=== PATIENT | female | born 1965 | race Caucasian/White ===

== ENCOUNTER → 2016-08-31 | Outpatient (CLI) | payer OTHER ==
[2016-08-31 10:34] LABS: CH 31.2; CHCM 34.2; HCT 46.2 % (34.0-46.0); HDW 3.01; HGB 15.2 gm/dL (11.4-16.0); MCHC 32.9 g/dL (31.0-37.0); MCV 91.4 fL (80.0-100.0); Mean Platelet Volume 7.5; RBC 5.06 m/uL (3.80-5.40); WBC 4.4 k/uL (3.8-10.6)
[2016-08-31 11:53] LABS: ALT 29 U/L (9-52); AST 22 U/L (14-36); Alkaline Phosphatase 77 U/L (38-126); Anion Gap 12 mmol/L; Blood Urea Nitrogen 9 mg/dL (7-17); Calcium 9.3 mg/dL (8.4-10.2); Carbon Dioxide 26 mmol/L (22-30); Chloride 98 mmol/L (98-107); Glucose 114 mg/dL (74-99); Iron 94 ug/dL (37-170); Non-African American GFR(MDRD) >60 (>60 ml/min/1.73 sqM); Potassium 3.9 mmol/L (3.5-5.1); Sodium 136 mmol/L (137-145); Total Bilirubin 0.4 mg/dL (0.2-1.3); Total Protein 7.2 g/dL (6.3-8.2)
[2016-08-31 12:02] LABS: % Iron Saturation 26.8 % (20-50); Total Iron Binding Capacity 351 ug/dL (265-497)
[2016-08-31 12:40] LABS: Vitamin B12 595 pg/mL (239-931)
== END | disposition home or self-care (01) ==
LOC: LABWHC1 09:32
PROVIDERS: ATTEND Psychiatry & Neurology Pain Medicine
DX: R56.9 Unspecified convulsions (principal); R53.83 Other fatigue
CPT/HCPCS: 36415; 80053; 82306; 82607; 82728; 83540; 83550; 84207; 84439; 84443; 84466; 84481; 85027

== ENCOUNTER 2017-12-17 20:49 | Observation (INO) | payer OTHER ==
--- NOTE | 2017-12-17 22:02 | ED ---
General Adult HPI - General Chief complaint: Seizure Stated complaint: Seizure Time Seen by Provider: 12/17/17 21:32 Source: patient, family, RN notes reviewed, Caregiver Mode of arrival: wheelchair Limitations: physical limitation - History of Present Illness Initial comments: Chief complaint and history of present illness this is a 52-year-old female brought emergency room by the printing manager of her nursing facility. The patient had a traumatic brain injury years ago. The patient apparently today may have had a slight vasovagal episode after having had a large hard bowel movement. The nurse taking care of her said she wasn't sure if she had a seizure or not. Due to the patient's traumatic brain injury and a past history of seizures is difficult to determine. The patient is able to state that she does not have headache remembers the situation does not think she had a seizure. The patient is on Depakote and has not been checked for a period of time. No other complaints at this time. - Related Data Home Medications Medication Instructions Recorded Confirmed ARIPiprazole [Abilify] 10 mg PO HS 02/03/14 06/25/16 ARIPiprazole [Abilify] 15 mg PO DAILY 02/03/14 06/25/16 Clobetasol Propionate [Temovate 1 applic TOPICAL BID 02/03/14 06/25/16 0.05% Oint] Clotrimazole/Betamethasone Dip 1 applic TOPICAL BID 02/03/14 06/25/16 [Lotrisone Cream] Divalproex Sodium [Depakote 125 mg PO DAILY 02/03/14 06/25/16 Sprinkle] Docusate [Colace] 100 mg PO DAILY 02/03/14 06/25/16 FLUoxetine HCL [PROzac] 20 mg PO DAILY 02/03/14 06/25/16 Ibuprofen [Motrin] 600 mg PO BID PRN 02/03/14 06/25/16 Lisinopril [Zestril] 2.5 mg PO DAILY 02/03/14 06/25/16 Nitrofurantoin Macrocrystal 100 mg PO DAILY 02/03/14 06/25/16 [Nitrofurantoin] Nystatin [Nystop] 1 applicate TOPICAL BID PRN 02/03/14 06/25/16 diphenhydrAMINE [Benadryl] 25 mg PO QID PRN 02/03/14 06/25/16 risperiDONE [RisperDAL] 3 mg PO HS 02/03/14 06/25/16 ALPRAZolam [Xanax] 2 mg PO TID PRN 06/25/16 06/25/16 Betamethasone Dipropionate 1 applic TOPICAL BID 06/25/16 06/25/16 [Diprolene 0.05% Lotion] Betamethasone Dipropionate 1 applic TOPICAL BID 06/25/16 06/25/16 [Diprolene 0.05% Ointment] Calcium Acetate-Aluminum Sulf 1 packet TOPICAL BID 06/25/16 06/25/16 [[place] Packet] Allen Tar Shampoo [T-Gel] 1 applic TOPICAL Q48H 06/25/16 06/25/16 Divalproex [Depakote] 500 mg PO TID 06/25/16 06/25/16 Eucerin Cream 1 applic TOPICAL HS 06/25/16 06/25/16 Ibuprofen [Motrin] 600 mg PO BID PRN 06/25/16 06/25/16 LORazepam [Ativan] 1 mg PO Q6H 06/25/16 06/25/16 Loperamide [Imodium] 4 mg PO BID PRN 06/25/16 06/25/16 Nystatin 100,000 Unit/gm Oint 1 applic TOPICAL BID PRN 06/25/16 06/25/16 [Mycostatin Oint] Nystatin/Triamcin 1 applic TOPICAL QID PRN 06/25/16 06/25/16 [Nystatin-Triamcinolone Cream] Ranitidine HCl [Zantac] 150 mg PO BID 06/25/16 06/25/16 T-Davon Shampoo 1 applic TOPICAL Q48H 06/25/16 06/25/16 Triamcinolone 0.1% Ointment 1 applic TOPICAL BID 06/25/16 06/25/16 [Kenalog 0.1% Ointment] Zeasorb-Af 2% Powder 1 applic TOPICAL BID 06/25/16 06/25/16 guaiFENesin [Mucinex] 1,200 mg PO BID PRN 06/25/16 06/25/16 guaiFENesin-DM 100-10MG/5ML 10 ml PO Q4H PRN 06/25/16 06/25/16 [Robitussin DM] traMADol HCL [Ultram] 50 mg PO Q4HR PRN 06/25/16 06/25/16 Previous Rx's Medication Instructions Recorded ALPRAZolam [Xanax] 0.5 mg PO Q4HR PRN #0 tab 06/28/16 Divalproex [Depakote] 500 mg PO TID tablet. 06/28/16 Allergies Allergy/AdvReac Type Severity Reaction Status Date / Time Sulfa (Sulfonamide Allergy Unknown Verified 12/17/17 21:12 Antibiotics) Review of Systems ROS Statement: Those systems with pertinent positive or pertinent negative responses have been documented in the HPI. Review of systems. The patient is able to answer questions though slowly because of the previous traumatic brain injury. Denying headache or visual acuity changes healed count fingers at 5 feet. Denying chest pain shortness breath denying abdominal pain. She does have more tremor than the guardian noticed before but she does have normally have tremor. Past medical problems significant for seizure disorder associated with traumatic brain injury. Unknown past surgical history at this time. ROS Other: All systems not noted in ROS Statement are negative. Past Medical History Past Medical History: Seizure Disorder Additional Past Medical History / Comment(s): brain injury, lt foot drop, chronic uti, depression, throat polyps, hiatal hernia; recurrent UTI; cognitive emotional volatility, History of Any Multi-Drug Resistant Organisms: None Reported Past Surgical History: Unable to Obtain Past Anesthesia/Blood Transfusion Reactions: No Reported Reaction Past Psychological History: Depression Smoking Status: Never smoker Past Alcohol Use History: None Reported Past Drug Use History: None Reported General Exam - General Exam Comments Initial Comments: General: The patient is awake and alert, and is acting in her normal way per nursing home assistant who is with her and was noted for 10 years. He states she does have more tremor normal at this time but she does normally have a tremor. Vital signs show temperature 99.0 pulse 91 respiratory rate 18 pulse ox 90% room air with a blood pressure 121/73. Eye: Pupils are equal, round and reactive to light, extra-ocular movements are intact ; there is normal conjunctiva bilaterally. No signs of icterus. Ears, nose, mouth and throat: There are moist mucous membranes . Neck: The neck is supple, no complaint of neck pain with neck flexion . Cardiovascular: There is a regular rate and rhythm. No murmur, rub or gallop is appreciated. Respiratory: Lungs are clear to auscultation, respirations are non-labored, breath sounds are equal. No wheezes, stridor, rales, or rhonchi. Gastrointestinal: Soft, non-distended, non-tender abdomen without masses or organomegaly noted. There is no rebound or guarding present. No CVA tenderness. Bowel sounds are unremarkable. Again age. Noted that the patient had this episode while having a large hard very abundant bowel movement described by the nursing home assistant. A possibility of a vasovagal episode is being considered. Back: No complaint of back pain. With the patient does admit that the stretcher is uncomfortable. Musculoskeletal: On both arms patient has psoriasis. Due to previous traumatic brain injury the patient's legs are semiflexed she is nonambulatory. Neurological: Previous traumatic brain injury over 10 years ago. 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 She does answer questions she does move extremities were requested. Skin: Psoriasis both forearms Psychiatric: Cooperative, traumatic brain injury history Limitations: physical limitation Course Vital Signs 12/17/17 21:06 Temperature 99.0 F Pulse Rate 91 Respiratory 18 Rate Blood Pressure 121/73 O2 Sat by Pulse 93 L Oximetry EKG Findings - EKG Comments: EKG Findings:: EKG was done and reviewed at 2201 showing normal sinus rhythm age undetermined anterior injury. Rate 92. Was 142 QRS 86 QT [address] Bernabe Medical Decision Making - Medical Decision Making Medical decision making; this is a 52-year-old female with a traumatic brain injury living at a nursing facility. Her administrative guardian brought her in because she may have had a mild seizure although this happened while she is on the toilet and just had had a very large hard bowel movement. Possibility of vasovagal episode also considered. The patient has not had a seizure in over 10 years. She is on Depakote. The patient's EKG did not show any acute changes. Her white count 8 the hemoglobin 14 hematocrit 42 with a potassium 5.2. BUN 15 creatinine 0.2 GFR greater than 90. Glucose 93. Valproic acid Depakote levels 130. Therapeutic is between 50 and 120, she is 130. reported to be toxic is over 200 toxic. Chest x-ray was done reviewed radiologist his final impression is ; no lobar consolidation or pulmonary edema. As read by Dr. Martinez The case discussed with Dr. Correia in the patient's attending patient be admitted for observation for the evening because of possible valproic acid toxicity. - Lab Data Result diagrams: 12/17/17 22:12 12/17/17 22:12 Lab Results 12/17/17 12/17/17 Range/Units 22:12 22:12 WBC 8.4 (3.8-10.6) k/uL RBC 4.72 (3.80-5.40) m/uL Hgb 14.5 (11.4-16.0) gm/dL Hct 42.5 (34.0-46.0) % MCV 89.9 (80.0-100.0) fL MCH 30.6 (25.0-35.0) pg MCHC 34.1 (31.0-37.0) g/dL RDW 14.2 (11.5-15.5) % Plt Count 152 (150-450) k/uL Neutrophils % 68 % Lymphocytes % 21 % Monocytes % 9 % Eosinophils % 1 % Basophils % 0 % Neutrophils # 5.7 (1.3-7.7) k/uL Lymphocytes # 1.7 (1.0-4.8) k/uL Monocytes # 0.8 (0-1.0) k/uL Eosinophils # 0.1 (0-0.7) k/uL Basophils # 0.0 (0-0.2) k/uL Sodium 135 L (137-145) mmol/L Potassium 5.2 H (3.5-5.1) mmol/L Chloride 97 L (98-107) mmol/L Carbon Dioxide 24 (22-30) mmol/L Anion Gap 14 mmol/L BUN 15 (7-17) mg/dL Creatinine 0.60 (0.52-1.04) mg/dL Est GFR (CKD-EPI)AfAm >90 (>60 ml/min/1.73 sqM) Est GFR (CKD-EPI)NonAf >90 (>60 ml/min/1.73 sqM) Glucose 93 (74-99) mg/dL Calcium 9.8 (8.4-10.2) mg/dL Total Bilirubin 0.4 (0.2-1.3) mg/dL AST 17 (14-36) U/L ALT 18 (9-52) U/L Alkaline Phosphatase 75 (38-126) U/L Total Protein 6.9 (6.3-8.2) g/dL Albumin 3.9 (3.5-5.0) g/dL Valproic Acid 130.3 H* ug/mL Disposition Clinical Impression: Valproic acid toxicity, Valproic acid-induced tremor, Personal history of traumatic brain injury Disposition: ADMITTED IP TO THIS HOSP Condition: Fair Is patient prescribed a controlled substance at d/c from ED?: No Referrals: None,Stated [REFERRING] - 1-2 days
[2017-12-17 22:25] LABS: Basophils % (A) 0 %; Eosinophils # (A) 0.1 k/uL (0-0.7); Eosinophils % (A) 1 %; HCT 42.5 % (34.0-46.0); HGB 14.5 gm/dL (11.4-16.0); Lymphocytes # (A) 1.7 k/uL (1.0-4.8); Lymphocytes % (A) 21 %; MCH 30.6 pg (25.0-35.0); MCHC 34.1 g/dL (31.0-37.0); MCV 89.9 fL (80.0-100.0); Monocytes # (A) 0.8 k/uL (0-1.0); Monocytes % (A) 9 %; Neutrophils # (A) 5.7 k/uL (1.3-7.7); Neutrophils % (A) 68 %; Platelet Count 152 k/uL (150-450); RBC 4.72 m/uL (3.80-5.40); RDW 14.2 % (11.5-15.5); WBC 8.4 k/uL (3.8-10.6)
[2017-12-17 22:36] LABS: ALT 18 U/L (9-52); AST 17 U/L (14-36); Albumin 3.9 g/dL (3.5-5.0); Alkaline Phosphatase 75 U/L (38-126); Anion Gap 14 mmol/L; Blood Urea Nitrogen 15 mg/dL (7-17); Calcium 9.8 mg/dL (8.4-10.2); Carbon Dioxide 24 mmol/L (22-30); Chloride 97 mmol/L (98-107); Glucose 93 mg/dL (74-99); Potassium 5.2 mmol/L (3.5-5.1); Sodium 135 mmol/L (137-145); Total Bilirubin 0.4 mg/dL (0.2-1.3); Total Protein 6.9 g/dL (6.3-8.2)
--- NOTE | 2017-12-17 22:50 | XR ---
EXAM: XR Chest, 1 View CLINICAL HISTORY: ITS.REASON XR Reason: Pain TECHNIQUE: Frontal view of the chest. COMPARISON: 06/25/16 FINDINGS: Lungs: Unremarkable. No consolidation. Pleural space: Unremarkable. No pneumothorax. Heart: Unremarkable. No cardiomegaly. Mediastinum: Unremarkable. Bones/joints: Unremarkable. IMPRESSION: No lobar consolidation or pulmonary edema.
[2017-12-17 22:56] LABS: Valproic Acid (Depakene) 130.3 ug/mL
[2017-12-17] MEDS ORDERED: ACETAMINOPHEN TAB 325 MG TAB PO PRN (23:24)
[2017-12-17] MEDS ORDERED: NALOXONE 0.4 MG/ML 1 ML VIAL IV PRN (23:24)
[2017-12-17] MEDS ORDERED: diphenhydrAMINE 25 MG CAP PO PRN (23:27)
[2017-12-17 23:33] LABS: Appearance,Urine Cloudy (Clear); Bacteria,Urine Rare /hpf; Bilirubin,Urine Negative (Negative); Blood,Urine Negative (Negative); Color,Urine Yellow; Glucose,Urine (UA) Negative (Negative); Hyaline Casts,Urine 6 /lpf (0-2); Ketones,Urine 1+ (Negative); Leukocyte Esterase,Urine Small (Negative); Mucus,Urine Many /hpf; Nitrite,Urine Negative (Negative); PH, Urine 6.5 (5.0-8.0); Protein,Urine 1+ (Negative); RBC,Urine 2 /hpf (0-5); Specific Gravity,Urine 1.027 (1.001-1.035); Squamous Epithelial Cell,Urine 6 /hpf (0-4); WBC,Urine 6 /hpf (0-5)
[2017-12-17] MEDS: SODIUM CHLORIDE 0.9% 1,000 ML IV SCH (23:43)
[2017-12-18 02:20] VITALS: BMI 30.9
[2017-12-18] MEDS ORDERED: CLOBETASOL PROP 0.05% OINT 15GM TOPICAL SCH (09:00)
[2017-12-18] MEDS ORDERED: CALCIUM ACETATE-ALUMINUM SULF 1 EACH PACKET TOPICAL SCH (09:00)
[2017-12-18] MEDS: FAMOTIDINE 20 MG TAB PO SCH ×2 (09:19→21:47)
[2017-12-18] MEDS: LISINOPRIL 2.5 MG TAB PO SCH (09:19)
[2017-12-18] MEDS: DOCUSATE 100 MG CAP PO SCH (09:19)
[2017-12-18] MEDS: FLUoxetine HCL 20 MG CAP PO SCH (09:19)
[2017-12-18] MEDS: SODIUM CHLORIDE 0.9% 1,000 ML IV SCH (11:36)
[2017-12-18] MEDS: BETAMETHASONE DIPROPIONATE 0.05% OINTMENT 45 GM TUBE TOPICAL SCH ×2 (12:01→21:47)
[2017-12-18] MEDS: CLOTRIMAZOLE/BETAMETH 1-0.05% CREAM 45 GM TUBE TOPICAL SCH ×2 (12:01→21:47)
[2017-12-18] MEDS ORDERED: LOPERAMIDE 2 MG CAP PO PRN (13:22)
[2017-12-18] MEDS ORDERED: ALPRAZolam 1 MG TAB PO PRN (13:22)
[2017-12-18] MEDS ORDERED: IBUPROFEN 600 MG TAB PO PRN (13:22)
[2017-12-18] MEDS ORDERED: MAGNESIUM HYDROXIDE 2,400 MG/10 ML CUP PO PRN (13:22)
[2017-12-18] MEDS ORDERED: traMADol 50 MG TAB PO PRN (13:22)
[2017-12-18] MEDS ORDERED: T SAL SHAMPOO TOPICAL SCH (13:30)
[2017-12-18] MEDS: DIVALPROEX 500 MG TABLET.DR PO SCH ×2 (15:36→21:47)
--- NOTE | 2017-12-18 18:43 | PN ---
PROGRESS NOTE CHIEF COMPLAINT: Possible seizure and Depakote toxicity. HISTORY OF PRESENT ILLNESS: This lady is awake and alert, doing fine. Depakote level is dropped into the normal range. We will restart her anticonvulsant medication. PHYSICAL EXAM: Is completely normal and she is awake and alert, but is inappropriate. IMPRESSION: 1. Depakote toxicity. 2. Seizure disorder. 3. Old closed head injury. PLAN: 1. Reinstitute Depakote. 2. Probably back to the detention tomorrow. MMODL / IJN: [id number] /
--- NOTE | 2017-12-18 18:43 | HP ---
HISTORY AND PHYSICAL CHIEF COMPLAINT: Possible seizure. HISTORY OF PRESENT ILLNESS: This may be another admission for this 52-year-old white female who is from the [facility]. She is resides there currently apparently due to old closed head injury. She is on Depakote and it was thought at the home that she might have had a brief seizure for which she was sent to the emergency room. There is more likely this is a vasovagal event since that occurred when they were helping her to the toilet for bowel movement. She cannot give any history. Past medical history, family history and personal and social histories are unobtainable. PHYSICAL EXAMINATION: Blood pressure is 142/85 with a pulse of 81, respirations of 20 and she is afebrile. In general, she appeared to be awake and alert, in no acute distress. She appears comfortable. Head, ears, eyes, nose, mouth, and throat were grossly normal. Neck veins not distended. Chest was clear. The cardiac exam is normal. Abdomen is soft, nontender and extremities are normal. Her laboratory studies on admission revealed the Depakote level was slightly elevated. IMPRESSION: 1. Possible seizure. 2. History of closed head injury with seizures. 3. Possible Depakote toxicity. PLAN: 1. Bed rest. 2. IV fluids. 3. Withhold Depakote. MMODL / IJN: [id number] /
[2017-12-18] MEDS ORDERED: risperiDONE 1 MG TAB PO SCH (21:00)
[2017-12-18] MEDS ORDERED: MINERAL OIL-WHITE PETROLATUM 120 GM JAR TOPICAL SCH (21:00)
[2017-12-18] MEDS ORDERED: ARIPiprazole 10 MG TAB PO SCH (21:00)
[2017-12-18 23:22] VITALS: RESP 16; TEMP 98
[2017-12-19] MEDS: SODIUM CHLORIDE 0.9% 1,000 ML IV SCH (06:28)
[2017-12-19 07:23] VITALS: BP 92/56; PULSE 64
[2017-12-19] MEDS: FLUoxetine HCL 20 MG CAP PO SCH (08:08)
[2017-12-19] MEDS: DOCUSATE 100 MG CAP PO SCH (08:08)
[2017-12-19] MEDS: DIVALPROEX 500 MG TABLET.DR PO SCH (08:08)
[2017-12-19] MEDS: LISINOPRIL 2.5 MG TAB PO SCH (08:08)
[2017-12-19] MEDS: FAMOTIDINE 20 MG TAB PO SCH (08:08)
[2017-12-19] MEDS: CLOTRIMAZOLE/BETAMETH 1-0.05% CREAM 45 GM TUBE TOPICAL SCH (08:13)
[2017-12-19] MEDS: BETAMETHASONE DIPROPIONATE 0.05% OINTMENT 45 GM TUBE TOPICAL SCH (08:13)
[2017-12-19] MEDS ORDERED: DIVALPROEX SPRINKLE 125 MG CAP.SPRINK PO SCH (09:00)
[2017-12-19] MEDS ORDERED: ARIPiprazole 15 MG TAB PO SCH (09:00)
[2017-12-19] MEDS ORDERED: FOLIC ACID 1 MG TAB PO SCH (12:00)
--- NOTE | 2017-12-20 07:53 | DS ---
DISCHARGE SUMMARY CHIEF COMPLAINT: Syncope and possible Depakote toxicity. HISTORY OF PRESENT ILLNESS AND PHYSICAL EXAM: Details of this lady's history and physical can be found in the initial workup. LABORATORY STUDIES: While she was in a hospital she had laboratory studies, details of which can be found in the laboratory section of her chart. COURSE IN THE HOSPITAL: After admission, she was placed on bedrest, started on intravenous fluids and her Depakote the next day was down. It is felt that her event was more likely related to a vasovagal episode. It was felt she could go back to the assisted. She will return on her usual medications. FINAL DIAGNOSES: 1. Syncope secondary to vasovagal response. 2. Closed head injury. 3. Seizure disorder. 4. Depakote toxicity. OPERATIONS: None. CONSULTATION: None. She is improved. MMMUSTAPHA / MARIANA: [id number] /
== END 2017-12-19 13:35 ==
LOC: EC 20:49 → 3SUR 23:24 → 3OBS 12-18 19:00
PROVIDERS: ADMIT Family Medicine; ATTEND Family Medicine
DX: R55 Syncope and collapse (principal); Z87.820 Personal history of traumatic brain injury; G40.909 Epilepsy, unspecified, not intractable, without status epilepticus; T42.6X5A Adverse effect of other antiepileptic and sedative-hypnotic drugs, initial encounter; Y92.099 Unspecified place in other non-institutional residence as the place of occurrence of the external cause; G25.1 Drug-induced tremor; F32.9 Major depressive disorder, single episode, unspecified; M21.372 Foot drop, left foot; L40.9 Psoriasis, unspecified; Z87.440 Personal history of urinary (tract) infections; Z79.899 Other long term (current) drug therapy; Z88.2 Allergy status to sulfonamides
CPT/HCPCS: 36415; 71045; 80053; 80164; 81001; 85025; 93005; 96360; 96361; 99285

== ENCOUNTER → 2020-09-25 | Outpatient (CLI) | payer OTHER ==
--- NOTE | 2020-09-25 13:31 | FL ---
EXAMINATION TYPE: FL barium swallow DATE OF EXAM: 09/25/2020 COMPARISON: None HISTORY: Dysphasia TECHNIQUE: Single contrast technique in the supine view. Patient condition prevented significant alma tional evaluation FINDINGS: Esophagus dilates to normal caliber has normal contour to the gastroesophageal junction. Ga stroesophageal junction opens to normal caliber. Tertiary contractions are evident within the distal esophagus. Small secondary contraction was evident within the mid esophagus. Correlate for presbyesop hagus. There is incomplete stripping of esophageal bolus the horizontal drinking position. IMPRESSION: 1. Presbyesophagus.
== END | disposition home or self-care (01) ==
LOC: RADUSWWP 09:54
PROVIDERS: ATTEND Family Medicine
DX: K22.8 Other specified diseases of esophagus (principal)
CPT/HCPCS: 74220

== ENCOUNTER 2021-03-16 10:08 | Emergency (ER) | payer OTHER ==
[2021-03-16 10:14] VITALS: RESP 18
[2021-03-16] MEDS ORDERED: ACETAMINOPHEN TAB 500 MG TAB PO STA (10:20)
[2021-03-16] MEDS ORDERED: SODIUM CHLORIDE 0.9% 1,000 ML IV STA (10:22)
--- NOTE | 2021-03-16 10:50 | XR ---
EXAMINATION TYPE: XR chest 1V portable DATE OF EXAM: 03/16/2021 COMPARISON: NONE HISTORY: Cough TECHNIQUE: Single frontal view of the chest is obtained. FINDINGS: There is no focal air space opacity, pleural effusion, or pneumothorax seen. The cardiac silhouette size is within normal limits. The osseous structures are intact. Diffuse osteopenia and arthropathy of the AC joint. Hypertrophic and degenerative changes spine. Basilar subsegmental change s noted.. IMPRESSION: Basilar subsegmental changes may be on the basis of atelectasis or early infiltrate herrera elate clinically.
--- NOTE | 2021-03-16 10:53 | ED ---
SOB HPI - General Chief Complaint: Shortness of Breath Stated Complaint: SOB, fever Time Seen by Provider: 03/16/21 10:14 Source: patient Mode of arrival: ambulatory Limitations: no limitations - History of Present Illness Initial Comments: Patient is a 55-year-old female with history of brain injury, seizure disorder, left-sided weakness at baseline, presenting to the emergency Department from [facility] for shortness of breath and fever that started this morning. They stated that she normally wears 3 L of O2, and started having a cough and they noticed a fever this morning. No other information is provided, no family at bedside. She does not have any complaints at this time. Upon arrival to the ER, she is 94% on room air, 98% on 2 L, she is febrile to 101.3, rest of vitals normal. - Related Data Home Medications Medication Instructions Recorded Confirmed ARIPiprazole [Abilify] 10 mg PO HS@199902/03/14 03/16/21 ARIPiprazole [Abilify] 15 mg PO DAILY@79902/03/14 03/16/21 Clotrimazole/Betamethasone Dip 1 applic TOPICAL BID@799,199902/03/14 03/16/21 [Lotrisone Cream] Divalproex Sodium [Depakote 125 mg PO DAILY@79902/03/14 03/16/21 Sprinkle] Docusate [Colace] 100 mg PO BID@799,199902/03/14 03/16/21 FLUoxetine HCL [PROzac] 20 mg PO DAILY@79902/03/14 03/16/21 diphenhydrAMINE [Benadryl] 25 mg PO QID PRN 02/03/14 03/16/21 lisinopriL [Zestril] 2.5 mg PO DAILY@79902/03/14 03/16/21 [place] Shampoo [T-Gel] 1 applic TOPICAL DIRECTED 06/25/16 03/16/21 Ibuprofen [Motrin] 600 mg PO BID PRN 06/25/16 03/16/21 LORazepam [Ativan] 1 mg PO DAILY PRN 06/25/16 03/16/21 Loperamide [Imodium] 2 - 4 mg PO QID PRN 06/25/16 03/16/21 guaiFENesin [Mucinex] 600 mg PO BID PRN 06/25/16 03/16/21 guaiFENesin-DM 100-10MG/5ML 10 ml PO Q4H PRN 06/25/16 03/16/21 [Robitussin DM] Ergocalciferol (Vitamin D2) 1,250 mcg PO Q30D 12/18/17 03/16/21 [Vitamin D2] Folic Acid 1 mg PO DAILY@0800 12/18/17 03/16/21 Magnesium Hydroxide [Milk of 2,400 mg PO Q72H PRN 12/18/17 03/16/21 Magnesia] Acetaminophen Tab [Tylenol Tab] 1,000 mg PO Q6H PRN 03/16/21 03/16/21 Albuterol Sulfate [Proair Hfa] 2 puff INHALATION RT-QID PRN 03/16/21 03/16/21 Atorvastatin [Lipitor] 40 mg PO HS@199903/16/21 03/16/21 Cetirizine HCl 10 mg PO HS@199903/16/21 03/16/21 Divalproex [Depakote] 500 mg PO TID@0800,1400,199903/16/21 03/16/21 Fish Oil/Dha/Epa [Fish Oil 1,200 1 cap PO BID@799,199903/16/21 03/16/21 mg Fish Oil] Nystatin [Nystop] 1 applic TOPICAL BID@799,199903/16/21 03/16/21 Omeprazole 20 mg PO DAILY@79903/16/21 03/16/21 Salicylic Acid [T-Davon] 1 applic TOPICAL DIRECTED PRN 03/16/21 03/16/21 metHOTREXate sodium [Methotrexate] 15 mg PO WE 03/16/21 03/16/21 risperiDONE [RisperDAL] 3 mg PO DAILY@0800 03/16/21 03/16/21 Previous Rx's Medication Instructions Recorded Azithromycin [Zithromax Z-pack (6 0 mg PO DIRECTED #1 pack 03/16/21 tabs)] Cephalexin [Keflex] 500 mg PO Q6HR 7 Days #28 cap 03/16/21 Allergies Allergy/AdvReac Type Severity Reaction Status Date / Time Sulfa (Sulfonamide Allergy Unknown Verified 03/16/21 11:43 Antibiotics) Review of Systems ROS Statement: Those systems with pertinent positive or pertinent negative responses have been documented in the HPI. ROS Other: All systems not noted in ROS Statement are negative. Past Medical History Past Medical History: Seizure Disorder Additional Past Medical History / Comment(s): brain injury, lt foot drop, chronic uti, depression, throat polyps, hiatal hernia; recurrent UTI; cognitive emotional volatility, History of Any Multi-Drug Resistant Organisms: None Reported Past Surgical History: Unable to Obtain Past Anesthesia/Blood Transfusion Reactions: No Reported Reaction Past Psychological History: Depression Past Alcohol Use History: None Reported Past Drug Use History: None Reported - Past Family History Father Family Medical History: Unable to Obtain Mother Family Medical History: Unable to Obtain General Exam - General Exam Comments Initial Comments: GENERAL: Patient is nontoxic and in no acute distress, slight tremors at baseline. HEAD: Atraumatic, normocephalic. EYES: Pupils equal round and reactive to light, extraocular movements intact, sclera anicteric, conjunctiva are normal. Eyelids were unremarkable. ENT: TMs normal, nares patent, oropharynx clear without exudates. Moist mucous membranes. NECK: Normal range of motion, supple without lymphadenopathy or JVD. LUNGS: Unlabored respirations. Breath sounds clear to auscultation bilaterally and equal. No wheezes rales or rhonchi. HEART: Regular rate and rhythm without murmurs, rubs or gallops. ABDOMEN: Soft, nontender, normoactive bowel sounds. No guarding, no rebound. No masses appreciated. : Deferred MUSCULOSKELETAL: Left-sided weakness is baseline from prior history, no other abnormalities. Normal extremities with adequate strength and normal range of motion, no pitting or edema. No clubbing or cyanosis. NEUROLOGICAL: Patient is alert and oriented x 1-2, this is her baseline. Cranial nerves II through XII grossly intact. PSYCH: Normal mood, normal affect. SKIN: Warm, Dry, normal turgor, no rashes or lesions noted. Limitations: no limitations Course Vital Signs 03/16/21 03/16/21 03/16/21 10:09 10:14 10:20 Temperature 98.0 F 101.3 F H Pulse Rate 79 Respiratory 18 Rate Blood Pressure 146/76 O2 Sat by Pulse 94 L 98 Oximetry 03/16/21 03/16/21 03/16/21 11:00 11:30 12:00 Temperature Pulse Rate 81 78 80 Respiratory 18 18 18 Rate Blood Pressure 146/76 115/96 134/67 O2 Sat by Pulse 96 96 96 Oximetry Medical Decision Making - Medical Decision Making Patient is a 55-year-old female with history of seizure disorder, mental delay, presenting from [facility] for shortness of breath and fever that they've noticed this morning. She did arrive febrile to 101.3 Tylenol was given. She has no specific complaints, poor historian, no further information provided. Laboratory shows a normal white count 8.9, kidney function is stable lactic acid is stable, troponin is normal. Covid test is negative, this x-ray shows subsegmental changes may be atelectasis or early infiltrate. Urine showed large amount leukocyte Estrace and 54 wbc's, urine culture and blood cultures are both pending. Patient's vital signs remained stable. She is at 96% on 2 L, she normally worse 3 L. Patient will be started on antibiotics for possible early pneumonia and UTI. She is stable for discharge back to [facility]. Recommend following up with PCP in 1-3 days. Continue with Tylenol for fever control. Case discussed with Dr. Rossi. - Lab Data Result diagrams: 03/16/21 10:24 03/16/21 10:24 Lab Results 03/16/21 03/16/21 03/16/21 Range/Units 10:24 10:24 10:24 WBC 8.9 (3.8-10.6) k/uL RBC 4.40 (3.80-5.40) m/uL Hgb 13.8 (11.4-16.0) gm/dL Hct 40.9 (34.0-46.0) % MCV 92.9 (80.0-100.0) fL MCH 31.4 (25.0-35.0) pg MCHC 33.8 (31.0-37.0) g/dL RDW 14.4 (11.5-15.5) % Plt Count 129 L (150-450) k/uL MPV 7.1 Neutrophils % 72 % Lymphocytes % 15 % Monocytes % 10 % Eosinophils % 0 % Basophils % 0 % Neutrophils # 6.3 (1.3-7.7) k/uL Lymphocytes # 1.3 (1.0-4.8) k/uL Monocytes # 0.9 (0-1.0) k/uL Eosinophils # 0.0 (0-0.7) k/uL Basophils # 0.0 (0-0.2) k/uL PT 11.2 (9.0-12.0) sec INR 1.1 (<1.2) APTT 21.0 L (22.0-30.0) sec Sodium 141 (137-145) mmol/L Potassium 4.5 (3.5-5.1) mmol/L Chloride 103 (98-107) mmol/L Carbon Dioxide 29 (22-30) mmol/L Anion Gap 9 mmol/L BUN 27 H (7-17) mg/dL Creatinine 0.71 (0.52-1.04) mg/dL Est GFR (CKD-EPI)AfAm >90 (>60 ml/min/1.73 sqM) Est GFR (CKD-EPI)NonAf >90 (>60 ml/min/1.73 sqM) Glucose 108 H (74-99) mg/dL Plasma Lactic Acid Kris (0.7-2.0) mmol/L Calcium 9.4 (8.4-10.2) mg/dL Magnesium 1.8 (1.6-2.3) mg/dL Total Bilirubin 0.3 (0.2-1.3) mg/dL AST 30 (14-36) U/L ALT 17 (4-34) U/L Alkaline Phosphatase 77 (38-126) U/L Lactate Dehydrogenase 436 (313-618) U/L Troponin I (0.000-0.034) ng/mL C-Reactive Protein 6.9 H (<1.0) mg/dL NT-Pro-B Natriuret Pep pg/mL Total Protein 6.7 (6.3-8.2) g/dL Albumin 3.6 (3.5-5.0) g/dL Urine Color Urine Appearance (Clear) Urine pH (5.0-8.0) Ur Specific [place] (1.001-1.035) Urine Protein (Negative) Urine Glucose (UA) (Negative) Urine Ketones (Negative) Urine Blood (Negative) Urine Nitrite (Negative) Urine Bilirubin (Negative) Urine Urobilinogen (<2.0) mg/dL Ur Leukocyte Esterase (Negative) Urine RBC (0-5) /hpf Urine WBC (0-5) /hpf Ur Squamous Epith Cells (0-4) /hpf Urine Bacteria (None) /hpf Urine Mucus (None) /hpf Coronavirus (PCR) (Not Detectd) 03/16/21 03/16/21 03/16/21 Range/Units 10:24 10:24 10:24 WBC (3.8-10.6) k/uL RBC (3.80-5.40) m/uL Hgb (11.4-16.0) gm/dL Hct (34.0-46.0) % MCV (80.0-100.0) fL MCH (25.0-35.0) pg MCHC (31.0-37.0) g/dL RDW (11.5-15.5) % Plt Count (150-450) k/uL MPV Neutrophils % % Lymphocytes % % Monocytes % % Eosinophils % % Basophils % % Neutrophils # (1.3-7.7) k/uL Lymphocytes # (1.0-4.8) k/uL Monocytes # (0-1.0) k/uL Eosinophils # (0-0.7) k/uL Basophils # (0-0.2) k/uL PT (9.0-12.0) sec INR (<1.2) APTT (22.0-30.0) sec Sodium (137-145) mmol/L Potassium (3.5-5.1) mmol/L Chloride (98-107) mmol/L Carbon Dioxide (22-30) mmol/L Anion Gap mmol/L BUN (7-17) mg/dL Creatinine (0.52-1.04) mg/dL Est GFR (CKD-EPI)AfAm (>60 ml/min/1.73 sqM) Est GFR (CKD-EPI)NonAf (>60 ml/min/1.73 sqM) Glucose (74-99) mg/dL Plasma Lactic Acid Kris 2.0 (0.7-2.0) mmol/L Calcium (8.4-10.2) mg/dL Magnesium (1.6-2.3) mg/dL Total Bilirubin (0.2-1.3) mg/dL AST (14-36) U/L ALT (4-34) U/L Alkaline Phosphatase (38-126) U/L Lactate Dehydrogenase (313-618) U/L Troponin I <0.012 (0.000-0.034) ng/mL C-Reactive Protein (<1.0) mg/dL NT-Pro-B Natriuret Pep 98 pg/mL Total Protein (6.3-8.2) g/dL Albumin (3.5-5.0) g/dL Urine Color Urine Appearance (Clear) Urine pH (5.0-8.0) Ur Specific [place] (1.001-1.035) Urine Protein (Negative) Urine Glucose (UA) (Negative) Urine Ketones (Negative) Urine Blood (Negative) Urine Nitrite (Negative) Urine Bilirubin (Negative) Urine Urobilinogen (<2.0) mg/dL Ur Leukocyte Esterase (Negative) Urine RBC (0-5) /hpf Urine WBC (0-5) /hpf Ur Squamous Epith Cells (0-4) /hpf Urine Bacteria (None) /hpf Urine Mucus (None) /hpf Coronavirus (PCR) (Not Detectd) 03/16/21 03/16/21 Range/Units 10:24 10:24 WBC (3.8-10.6) k/uL RBC (3.80-5.40) m/uL Hgb (11.4-16.0) gm/dL Hct (34.0-46.0) % MCV (80.0-100.0) fL MCH (25.0-35.0) pg MCHC (31.0-37.0) g/dL RDW (11.5-15.5) % Plt Count (150-450) k/uL MPV Neutrophils % % Lymphocytes % % Monocytes % % Eosinophils % % Basophils % % Neutrophils # (1.3-7.7) k/uL Lymphocytes # (1.0-4.8) k/uL Monocytes # (0-1.0) k/uL Eosinophils # (0-0.7) k/uL Basophils # (0-0.2) k/uL PT (9.0-12.0) sec INR (<1.2) APTT (22.0-30.0) sec Sodium (137-145) mmol/L Potassium (3.5-5.1) mmol/L Chloride (98-107) mmol/L Carbon Dioxide (22-30) mmol/L Anion Gap mmol/L BUN (7-17) mg/dL Creatinine (0.52-1.04) mg/dL Est GFR (CKD-EPI)AfAm (>60 ml/min/1.73 sqM) Est GFR (CKD-EPI)NonAf (>60 ml/min/1.73 sqM) Glucose (74-99) mg/dL Plasma Lactic Acid Kris (0.7-2.0) mmol/L Calcium (8.4-10.2) mg/dL Magnesium (1.6-2.3) mg/dL Total Bilirubin (0.2-1.3) mg/dL AST (14-36) U/L ALT (4-34) U/L Alkaline Phosphatase (38-126) U/L Lactate Dehydrogenase (313-618) U/L Troponin I (0.000-0.034) ng/mL C-Reactive Protein (<1.0) mg/dL NT-Pro-B Natriuret Pep pg/mL Total Protein (6.3-8.2) g/dL Albumin (3.5-5.0) g/dL Urine Color Yellow Urine Appearance Cloudy H (Clear) Urine pH 6.5 (5.0-8.0) Ur Specific [place] 1.025 (1.001-1.035) Urine Protein 1+ H (Negative) Urine Glucose (UA) Negative (Negative) Urine Ketones Trace H (Negative) Urine Blood Negative (Negative) Urine Nitrite Negative (Negative) Urine Bilirubin Negative (Negative) Urine Urobilinogen 6.0 (<2.0) mg/dL Ur Leukocyte Esterase Large H (Negative) Urine RBC 5 (0-5) /hpf Urine WBC 54 H (0-5) /hpf Ur Squamous Epith Cells 3 (0-4) /hpf Urine Bacteria Rare H (None) /hpf Urine Mucus Many H (None) /hpf Coronavirus (PCR) Not Detected (Not Detectd) - EKG Data EKG Comments: Sinus rhythm with fusion complexes, RBBB, no signs of acute ST segment elevation. Compared to previous on 12/17/2017. Ventricular rate 81, WI interval 128, QTC 410. Disposition Clinical Impression: Fever, UTI (urinary tract infection), Cough Disposition: HOME SELF-CARE Condition: Stable Instructions (If sedation given, give patient instructions): Urinary Tract Infection in Women (ED) Additional Instructions: Please return to the Emergency Department if symptoms worsen or any other concerns. Please take both antibiotics as prescribed for UTI and possible early pneumonia. Covid test is negative. Follow-up with PCP in 1-3 days. Prescriptions: Cephalexin [Keflex] 500 mg PO Q6HR 7 Days #28 cap Azithromycin [Zithromax Z-pack (6 tabs)] 0 mg PO DIRECTED #1 pack Is patient prescribed a controlled substance at d/c from ED?: No Referrals: Alberto Mary MD [Primary Care Provider] - 1-2 days Time of Disposition: 13:23
[2021-03-16 10:54] LABS: Basophils % (A) 0 %; Eosinophils % (A) 0 %; HCT 40.9 % (34.0-46.0); HGB 13.8 gm/dL (11.4-16.0); Lymphocytes # (A) 1.3 k/uL (1.0-4.8); Lymphocytes % (A) 15 %; MCH 31.4 pg (25.0-35.0); MCHC 33.8 g/dL (31.0-37.0); MCV 92.9 fL (80.0-100.0); Mean Platelet Volume 7.1; Monocytes # (A) 0.9 k/uL (0-1.0); Monocytes % (A) 10 %; Neutrophils # (A) 6.3 k/uL (1.3-7.7); Neutrophils % (A) 72 %; Platelet Count 129 k/uL (150-450); RDW 14.4 % (11.5-15.5); WBC 8.9 k/uL (3.8-10.6)
[2021-03-16 10:55] LABS: ALT 17 U/L (4-34); AST 30 U/L (14-36); African American GFR (CKD) >90 (>60 ml/min/1.73 sqM); Albumin 3.6 g/dL (3.5-5.0); Alkaline Phosphatase 77 U/L (38-126); Anion Gap 9 mmol/L; Blood Urea Nitrogen 27 mg/dL (7-17); C Reactive Protein 6.9 mg/dL (<1.0); Calcium 9.4 mg/dL (8.4-10.2); Carbon Dioxide 29 mmol/L (22-30); Chloride 103 mmol/L (98-107); Glucose 108 mg/dL (74-99); LDH 436 U/L (313-618); Magnesium 1.8 mg/dL (1.6-2.3); Non-African American GFR(CKD) >90 (>60 ml/min/1.73 sqM); Potassium 4.5 mmol/L (3.5-5.1); Sodium 141 mmol/L (137-145); Total Bilirubin 0.3 mg/dL (0.2-1.3); Total Protein 6.7 g/dL (6.3-8.2)
[2021-03-16 11:03] LABS: INR 1.1 (<1.2)
[2021-03-16 11:04] LABS: Prothrombin Time 11.2 sec (9.0-12.0)
[2021-03-16 12:36] LABS: Appearance,Urine Cloudy (Clear); Bacteria,Urine Rare /hpf; Bilirubin,Urine Negative (Negative); Blood,Urine Negative (Negative); Color,Urine Yellow; Glucose,Urine (UA) Negative (Negative); Ketones,Urine Trace (Negative); Leukocyte Esterase,Urine Large (Negative); Mucus,Urine Many /hpf; Nitrite,Urine Negative (Negative); PH, Urine 6.5 (5.0-8.0); Protein,Urine 1+ (Negative); RBC,Urine 5 /hpf (0-5); Specific Gravity,Urine 1.025 (1.001-1.035); Squamous Epithelial Cell,Urine 3 /hpf (0-4); WBC,Urine 54 /hpf (0-5)
[2021-03-16] MEDS ORDERED: cefTRIAXone IN SWFI 1,000 MG/10 ML SYRINGE IVP STA (13:18)
[2021-03-16 14:49] VITALS: BP 136/64; PULSE 69; TEMP 98.9
== END 2021-03-16 14:49 | disposition home or self-care (01) ==
LOC: EC 10:08
DX: N39.0 Urinary tract infection, site not specified (principal); R05 Cough; G40.909 Epilepsy, unspecified, not intractable, without status epilepticus; F32.9 Major depressive disorder, single episode, unspecified; Z79.1 Long term (current) use of non-steroidal anti-inflammatories (NSAID); Z79.51 Long term (current) use of inhaled steroids; Z79.899 Other long term (current) drug therapy; Z88.2 Allergy status to sulfonamides
CPT/HCPCS: 36415; 93005; 83880; 80053; 83605; 83615; 83735; 84484; 85025; 85610; 85730; 86140; 81001; 87040; 87086; 87635; 71045; 96374; 96361 ×3; 99285; J0696

== ENCOUNTER 2022-11-02 15:25 | Inpatient (IN) | payer OTHER ==
[2022-11-02] MEDS ORDERED: IBUPROFEN 600 MG TAB PO STA (15:31)
[2022-11-02] MEDS ORDERED: ACETAMINOPHEN TAB 500 MG TAB PO STA (15:31)
[2022-11-02] MEDS ORDERED: cefTRIAXone IN SWFI 1,000 MG/10 ML SYRINGE IVP STA (15:32)
--- NOTE | 2022-11-02 15:41 | ED ---
General Adult HPI - General Stated complaint: UTI Time Seen by Provider: 11/02/22 15:25 Source: patient, RN notes reviewed, old records reviewed - History of Present Illness Initial comments: This a 56-year-old female with a past medical history significant for traumatic brain injury. Patient is alert at baseline but not oriented. Patient is brought in today because she has a low-grade fever she's been on Levaquin for 5 days for urinary tract infection does not appear to be getting any better. Patient has been slightly altered according to staff that knows her. Patient is refusing to eat or drink and so they decided to bring her to the emergency department. Patient does have a chronic urinary tract infection. Patient has not had any problems breathing or coughing that was reported. There's been no vomiting. Patient is unable to give any history. History of comes from EMS. - Related Data Home Medications Medication Instructions Recorded Confirmed ARIPiprazole [Abilify] 10 mg PO HS@199902/03/14 11/02/22 ARIPiprazole [Abilify] 15 mg PO DAILY@79902/03/14 11/02/22 Clotrimazole/Betamethasone Dip 1 applic TOPICAL BID@799,199902/03/14 11/02/22 [Lotrisone Cream] diphenhydrAMINE [Benadryl] 25 mg PO QID PRN 02/03/14 11/02/22 Ibuprofen [Motrin] 600 mg PO BID PRN 06/25/16 11/02/22 Loperamide [Imodium] 2 - 4 mg PO QID PRN 06/25/16 11/02/22 guaiFENesin [Mucinex] 600 mg PO BID PRN 06/25/16 11/02/22 guaiFENesin-DM 100-10MG/5ML 10 ml PO Q4H PRN 06/25/16 11/02/22 [Robitussin DM] Ergocalciferol (Vitamin D2) 1,250 mcg PO Q30D 12/18/17 11/02/22 [Vitamin D2] Folic Acid 1 mg PO DAILY@0800 12/18/17 11/02/22 Magnesium Hydroxide [Milk of 2,400 mg PO Q72H PRN 12/18/17 11/02/22 Magnesia] Acetaminophen Tab [Tylenol Tab] 1,000 mg PO Q6H PRN MDD 3GM OF 03/16/21 11/02/22 ACETAMINOPHEN Atorvastatin [Lipitor] 40 mg PO HS@199903/16/21 11/02/22 Cetirizine HCl 10 mg PO DAILY 03/16/21 11/02/22 Divalproex [Depakote] 500 mg PO TID 03/16/21 11/02/22 Fish Oil/Dha/Epa [Fish Oil 1,200 1 cap PO BID 03/16/21 11/02/22 mg Fish Oil] Nystatin [Nystop] 1 applic TOPICAL BID 03/16/21 11/02/22 Omeprazole 20 mg PO DAILY@0803/16/21 11/02/22 Salicylic Acid [T-Davon] 1 applic TOPICAL DIRECTED PRN 03/16/21 11/02/22 metHOTREXate sodium [Methotrexate] 15 mg PO WE 03/16/21 11/02/22 risperiDONE [RisperDAL] 3 mg PO DAILY@0803/16/21 11/02/22 ALPRAZolam [Xanax] 0.5 mg PO BID 11/02/22 11/02/22 Acetaminophen [Tylenol Arthritis] 650 mg PO BID MDD 3GM OF 11/02/22 11/02/22 ACETAMINOPHEN Albuterol Nebulized [Ventolin 2.5 mg INHALATION RT-QID 11/02/22 11/02/22 Nebulized] Diclofenac Sodium [Voltaren 1 applic TOPICAL TID 11/02/22 11/02/22 Arthritis Pain 1% Gel] FLUoxetine HCL 40 mg PO DAILY 11/02/22 11/02/22 Fluconazole 200 mg PO DAILY 11/02/22 11/02/22 HYDROcodone/APAP [[place] Elixir 15 ml PO TID MDD 3GM OF 11/02/22 11/02/22 7.5-325Mg/15Ml] ACETAMINOPHEN Levofloxacin [Levaquin] 750 mg PO DAILY 11/02/22 11/02/22 Nystatin 100,000Unit/gm Cream 1 applic TOPICAL BID 11/02/22 11/02/22 [Mycostatin Cream] Sennosides [Senokot] 8.6 mg PO BID 11/02/22 11/02/22 Terbinafine 1% Cream [LamISIL] 1 applic TOPICAL BID 11/02/22 11/02/22 lisinopriL [Zestril] 5 mg PO DAILY PRN 11/02/22 11/02/22 predniSONE 10 mg PO DAILY 11/02/22 11/02/22 Allergies Allergy/AdvReac Type Severity Reaction Status Date / Time Sulfa (Sulfonamide Allergy Unknown Verified 11/02/22 15:46 Antibiotics) Review of Systems ROS Statement: Those systems with pertinent positive or pertinent negative responses have been documented in the HPI. ROS Other: All systems not noted in ROS Statement are negative. Past Medical History Past Medical History: Seizure Disorder Additional Past Medical History / Comment(s): brain injury, lt foot drop, chronic uti, depression, throat polyps, hiatal hernia; recurrent UTI; cognitive emotional volatility, History of Any Multi-Drug Resistant Organisms: None Reported Past Surgical History: Unable to Obtain Past Anesthesia/Blood Transfusion Reactions: No Reported Reaction Past Psychological History: Depression Past Alcohol Use History: None Reported Past Drug Use History: None Reported - Past Family History Father Family Medical History: Unable to Obtain Mother Family Medical History: Unable to Obtain General Exam - General Exam Comments Initial Comments: GENERAL: Patient is well-developed and well-nourished. Patient is nontoxic and well- hydrated and is in no acute distress. ENT: Neck is soft and supple. No significant lymphadenopathy is noted. Oropharynx is clear. Moist mucous membranes. Neck has full range of motion without eliciting any pain. EYES: The sclera were anicteric and conjunctiva were pink and moist. Extraocular movements were intact and pupils were equal round and reactive to light. Eyelids were unremarkable. PULMONARY: Unlabored respirations. Good breath sounds bilaterally. No audible rales rhonchi or wheezing was noted. CARDIOVASCULAR: There is a regular rate and rhythm without any murmurs gallops or rubs. ABDOMEN: Soft and nontender with normal bowel sounds. SKIN: Skin is clear with no lesions or rashes and otherwise unremarkable. NEUROLOGIC: Patient is alert and oriented 0. According to EMS she is pretty much at her baseline. MUSCULOSKELETAL: Normal extremities with adequate strength and full range of motion. No lower extremity swelling or edema. No calf tenderness. LYMPHATICS: No significant lymphadenopathy is noted PSYCHIATRIC: Unable to assess Course Vital Signs 11/02/22 15:29 Temperature 99.2 F Pulse Rate 73 Respiratory 18 Rate Blood Pressure 123/73 O2 Sat by Pulse 93 L Oximetry Medical Decision Making - Medical Decision Making EKG was interpreted by myself shows a sinus rhythm at 66 bpm GA interval 241 36 Q-T Intervals 425 QTC Is 438. Patient's EKG Shows a Right Bundle Branch Block. No ST Segment Elevation. Was pt. sent in by a medical professional or institution ([facility] Crisost[facility], ROOTER OPERATOR, urgent care, hospital, or half-way...) When possible be specific @ -Patient was sent in from the half-way Did you speak to anyone other than the patient for history (EMS, parent, family, police, friend...)? What history was obtained from this source @ -EMS gave us all the history Did you review nursing and triage notes (agree or disagree)? Why? @ -I reviewed and agree with nursing and triage notes Were old charts reviewed (outside hosp., previous admission, EMS record, old EKG, old radiological studies, urgent care reports/EKG's, half-way records)? Report findings @ -Prior laboratory results radiological studies were reviewed and compared to today's results Differential Diagnosis (chest pain, altered mental status, abdominal pain women, abdominal pain men, vaginal bleeding, weakness, fever, dyspnea, syncope, headache, dizziness, GI bleed, back pain, seizure, CVA, palpatations, mental health, musculoskeletal)? @ -Differential Altered Mental Status: Hypoglycemia, DKA, hypercapnia, ETOH, overdose, CO poisoning, trauma, myxedema coma, HTN encephalopathy, infection, encephalitis, psychosis, intercranial hemorrhage, hepatic encephalopathy, meningitis, CVA, this is not meant to be an all-inclusive list EKG interpreted by me (3pts min.). @ -As above X-rays interpreted by me (1pt min.). @ -Chest x-ray was interpreted by myself shows opacification some bilateral bases consistent with pneumonia CT interpreted by me (1pt min.). @ -None done U/S interpreted by me (1pt. min.). @ -None done What testing was considered but not performed or refused? (CT, X-rays, U/S, labs)? Why? @ -None What meds were considered but not given or refused? Why? @ -None Did you discuss the management of the patient with other professionals (professionals i.e. [facility] Crisostomo, ROOTER OPERATOR, lab, RT, psych nurse, social service worker, travel clerk, teacher, occupational health and safety officer, manager of case management)? Give summary @ -I spoke with Dr. Marie he agreed to admit the patient Was smoking cessation discussed for >3mins.? @ -No Was critical care preformed (if so, how long)? @ -No Were there social determinants of health that impacted care today? How? (Homelessness, low income, unemployed, alcoholism, drug addiction, transportation, low edu. Level, literacy, decrease access to med. care, alf, rehab)? @ -No Was there de-escalation of care discussed even if they declined (Discuss DNR or withdrawal of care, Hospice)? DNR status @ -No What co-morbidities impacted this encounter? (DM, HTN, Smoking, COPD, CAD, Cancer, CVA, ARF, Chemo, Hep., AIDS, mental health diagnosis, sleep apnea, morbid obesity)? @ -None Was patient admitted / discharged? Hospital course, mention meds given and rou te, prescriptions, significant lab abnormalities, going to OR and other pertinent info. @ -Patient came in with low-grade fever and slightly altered mental status. I worked rapid it appeared any x-ray that she has not passed patient says with pneumonia started the patient on Rocephin I spoke with Dr. Marie he agreed to admit the patient and the patient I consulted infectious disease Undiagnosed new problem with uncertain prognosis? @ -No Drug Therapy requiring intensive monitoring for toxicity (Heparin, Nitro, Insul in, Cardizem)? @ -No Were any procedures done? @ -No Diagnosis/symptom? @ -Pneumonia Acute, or Chronic, or Acute on Chronic? @ -Acute Uncomplicated (without systemic symptoms) or Complicated (systemic symptoms)? @ -Complicated Side effects of treatment? @ -No Exacerbation, Progression, or Severe Exacerbation? @ -No Poses a threat to life or bodily function? How? (Chest pain, [place], SD, pneumonia, PE, COPD, DKA, ARF, appy, cholecystitis, CVA, Diverticulitis, Homicidal, Suicidal, threat to staff... and all critical care pts) @ -No Diagnosis/symptom? @ -Altered mental status Acute, or Chronic, or Acute on Chronic? @ -Acute Uncomplicated (without systemic symptoms) or Complicated (systemic symptoms)? @ -Uncomplicated Side effects of treatment? @ -none Exacerbation, Progression, or Severe Exacerbation] @ -no Poses a threat to life or bodily function? @ -no - Lab Data Result diagrams: 11/02/22 15:41 11/02/22 15:41 Lab Results 11/02/22 11/02/22 11/02/22 Range/Units 15:41 15:41 15:41 WBC 7.3 (3.8-10.6) k/uL RBC 4.10 (3.80-5.40) m/uL Hgb 12.5 (11.4-16.0) gm/dL Hct 38.7 (34.0-46.0) % MCV 94.4 (80.0-100.0) fL MCH 30.5 (25.0-35.0) pg MCHC 32.3 (31.0-37.0) g/dL RDW 15.2 (11.5-15.5) % Plt Count 219 (150-450) k/uL MPV 7.4 Neutrophils % 79 % Lymphocytes % 13 % Monocytes % 6 % Eosinophils % 0 % Basophils % 0 % Neutrophils # 5.8 (1.3-7.7) k/uL Lymphocytes # 1.0 (1.0-4.8) k/uL Monocytes # 0.4 (0-1.0) k/uL Eosinophils # 0.0 (0-0.7) k/uL Basophils # 0.0 (0-0.2) k/uL PT 11.4 (9.0-12.0) sec INR 1.1 (<1.2) APTT 21.6 L (22.0-30.0) sec Sodium 140 (137-145) mmol/L Potassium 4.9 (3.5-5.1) mmol/L Chloride 102 (98-107) mmol/L Carbon Dioxide 31 H (22-30) mmol/L Anion Gap 7 mmol/L BUN 33 H (7-17) mg/dL Creatinine 0.68 (0.52-1.04) mg/dL Est GFR (CKD-EPI)AfAm >90 (>60 ml/min/1.73 sqM) Est GFR (CKD-EPI)NonAf >90 (>60 ml/min/1.73 sqM) Glucose 100 H (74-99) mg/dL Plasma Lactic Acid Kris (0.7-2.0) mmol/L Calcium 8.7 (8.4-10.2) mg/dL Total Bilirubin 0.5 (0.2-1.3) mg/dL AST 25 (14-36) U/L ALT 19 (4-34) U/L Alkaline Phosphatase 75 (38-126) U/L Total Protein 7.2 (6.3-8.2) g/dL Albumin 3.9 (3.5-5.0) g/dL Urine Color Urine Appearance (Clear) Urine pH (5.0-8.0) Ur Specific [place] (1.001-1.035) Urine Protein (Negative) Urine Glucose (UA) (Negative) Urine Ketones (Negative) Urine Blood (Negative) Urine Nitrite (Negative) Urine Bilirubin (Negative) Urine Urobilinogen (<2.0) mg/dL Ur Leukocyte Esterase (Negative) Influenza Type A (PCR) (Not Detectd) Influenza Type B (PCR) (Not Detectd) RSV (PCR) (Not Detectd) SARS-CoV-2 (PCR) (Not Detectd) 11/02/22 11/02/22 11/02/22 Range/Units 15:41 16:09 17:12 WBC (3.8-10.6) k/uL RBC (3.80-5.40) m/uL Hgb (11.4-16.0) gm/dL Hct (34.0-46.0) % MCV (80.0-100.0) fL MCH (25.0-35.0) pg MCHC (31.0-37.0) g/dL RDW (11.5-15.5) % Plt Count (150-450) k/uL MPV Neutrophils % % Lymphocytes % % Monocytes % % Eosinophils % % Basophils % % Neutrophils # (1.3-7.7) k/uL Lymphocytes # (1.0-4.8) k/uL Monocytes # (0-1.0) k/uL Eosinophils # (0-0.7) k/uL Basophils # (0-0.2) k/uL PT (9.0-12.0) sec INR (<1.2) APTT (22.0-30.0) sec Sodium (137-145) mmol/L Potassium (3.5-5.1) mmol/L Chloride (98-107) mmol/L Carbon Dioxide (22-30) mmol/L Anion Gap mmol/L BUN (7-17) mg/dL Creatinine (0.52-1.04) mg/dL Est GFR (CKD-EPI)AfAm (>60 ml/min/1.73 sqM) Est GFR (CKD-EPI)NonAf (>60 ml/min/1.73 sqM) Glucose (74-99) mg/dL Plasma Lactic Acid Kris 1.4 (0.7-2.0) mmol/L Calcium (8.4-10.2) mg/dL Total Bilirubin (0.2-1.3) mg/dL AST (14-36) U/L ALT (4-34) U/L Alkaline Phosphatase (38-126) U/L Total Protein (6.3-8.2) g/dL Albumin (3.5-5.0) g/dL Urine Color Yellow Urine Appearance Clear (Clear) Urine pH 6.5 (5.0-8.0) Ur Specific [place] 1.025 (1.001-1.035) Urine Protein Trace H (Negative) Urine Glucose (UA) Negative (Negative) Urine Ketones Trace H (Negative) Urine Blood Negative (Negative) Urine Nitrite Negative (Negative) Urine Bilirubin Negative (Negative) Urine Urobilinogen <2.0 (<2.0) mg/dL Ur Leukocyte Esterase Negative (Negative) Influenza Type A (PCR) Not Detected (Not Detectd) Influenza Type B (PCR) Not Detected (Not Detectd) RSV (PCR) Not Detected (Not Detectd) SARS-CoV-2 (PCR) Not Detected (Not Detectd) Disposition Clinical Impression: Pneumonia, Altered mental status Disposition: ADMITTED IP TO THIS HOSP Referrals: Alberto Mary MD [Primary Care Provider] - 1-2 days Time of Disposition: 17:59
[2022-11-02 16:08] LABS: Basophils % (A) 0 %; Eosinophils % (A) 0 %; HCT 38.7 % (34.0-46.0); HGB 12.5 gm/dL (11.4-16.0); Lymphocytes % (A) 13 %; MCH 30.5 pg (25.0-35.0); MCHC 32.3 g/dL (31.0-37.0); MCV 94.4 fL (80.0-100.0); Mean Platelet Volume 7.4; Monocytes # (A) 0.4 k/uL (0-1.0); Monocytes % (A) 6 %; Neutrophils # (A) 5.8 k/uL (1.3-7.7); Neutrophils % (A) 79 %; Platelet Count 219 k/uL (150-450); RDW 15.2 % (11.5-15.5); WBC 7.3 k/uL (3.8-10.6)
[2022-11-02 16:16] LABS: ALT 19 U/L (4-34); AST 25 U/L (14-36); African American GFR (CKD) >90 (>60 ml/min/1.73 sqM); Albumin 3.9 g/dL (3.5-5.0); Alkaline Phosphatase 75 U/L (38-126); Anion Gap 7 mmol/L; Blood Urea Nitrogen 33 mg/dL (7-17); Calcium 8.7 mg/dL (8.4-10.2); Carbon Dioxide 31 mmol/L (22-30); Chloride 102 mmol/L (98-107); Glucose 100 mg/dL (74-99); Non-African American GFR(CKD) >90 (>60 ml/min/1.73 sqM); Potassium 4.9 mmol/L (3.5-5.1); Sodium 140 mmol/L (137-145); Total Bilirubin 0.5 mg/dL (0.2-1.3); Total Protein 7.2 g/dL (6.3-8.2)
[2022-11-02 16:29] LABS: Appearance,Urine Clear (Clear); Bilirubin,Urine Negative (Negative); Blood,Urine Negative (Negative); Color,Urine Yellow; Glucose,Urine (UA) Negative (Negative); Ketones,Urine Trace (Negative); Leukocyte Esterase,Urine Negative (Negative); Nitrite,Urine Negative (Negative); PH, Urine 6.5 (5.0-8.0); Protein,Urine Trace (Negative); Specific Gravity,Urine 1.025 (1.001-1.035); Urobilinogen,Urine <2.0 mg/dL (<2.0)
[2022-11-02 16:30] LABS: INR 1.1 (<1.2); Partial Thromboplastin Time 21.6 sec (22.0-30.0); Prothrombin Time 11.4 sec (9.0-12.0)
[2022-11-02] MEDS: SODIUM CHLORIDE 0.9% 500 ML 500 ML IV SCH ×2 (16:39→18:00)
[2022-11-02] MEDS ORDERED: SODIUM CHLORIDE 0.9% 1,000 ML IV ONE (17:19)
--- NOTE | 2022-11-02 17:42 | XR ---
EXAMINATION TYPE: XR chest 2V DATE OF EXAM: 11/02/2022 5:27 PM COMPARISON: Chest radiographs from 03/16/2021 TECHNIQUE: XR chest 2V Frontal and lateral views of the chest. CLINICAL INDICATION:Female, 56 years old with history of Fever; FINDINGS: Lungs/Pleura: Increased airspace opacities in the lung bases. There is no evidence of pleural effusio n, or pneumothorax. Pulmonary vascularity: Unremarkable. Heart/mediastinum: Cardiomediastinal silhouette is unremarkable. Musculoskeletal: No acute osseous pathology. IMPRESSION: Increased airspace opacities in the lung bases correlate for pneumonia. Attention on follow-up michael watson
[2022-11-02] MEDS ORDERED: PNEUMONIA PROTOCOL UTILIZED 1 EACH MISC PO PRN (18:52)
[2022-11-02] MEDS ORDERED: AZITHROMYCIN 500 MG in SODIUM CHLORIDE 0.9% 250 ML IVPB STA (18:52)
[2022-11-02] MEDS ORDERED: ACETAMINOPHEN TAB 500 MG TAB PO PRN (20:17)
[2022-11-02] MEDS ORDERED: lisinopriL 5 MG TAB PO PRN (20:18)
[2022-11-02] MEDS ORDERED: MAGNESIUM HYDROXIDE 2,400 MG/10 ML CUP PO PRN (20:18)
[2022-11-02] MEDS ORDERED: IBUPROFEN 600 MG TAB PO PRN (20:18)
--- NOTE | 2022-11-02 21:04 | P.HPIM ---
History of Present Illness H&P Date: 11/02/22 Chief Complaint: Fever This is a 56-year-old patient, follows with visiting physicians Dr. Mary. Chronic stable medical conditions include seizure disorder, brain injury, left foot drop, chronic UTIs, depression, hiatal hernia, cognitive emotional volatility, depression. Patient does attempt to speak but words not discernible. By the EMS report patient's AO 1 at baseline. Patient was diagnosed with UTI. Prescribed Levaquin continued to decline. Patient is more lethargic than normal and is refusing to eat or drink. Patient does sound a bit congested. Review of systems cannot be obtained's patient is barely able to talk Social history: No smoking or alcohol. At [facility] Physical examination: VITAL SIGNS: 99.2, 73, 18, 123 with 73, 93% on 4 L GENERAL: BMI 36.6, laying in bed tired. EYES: Pupils equal. Conjunctiva normal. HEENT: External appearance of nose and ears normal, oral cavity grossly normal. NECK: JVD unable to assess masses not palpable. HEART: First and second heart sounds are normal; no edema. LUNGS: Respiratory rate increased; decreased breath sounds. ABDOMEN: Soft, nontender, liver spleen not palpable, no masses palpable. PSYCH: Unable to assessl. MUSCULOSKELETAL:No Clubbing/cyanosis;muscles-grossly intact. Left foot drop NEUROLOGICAL: Cranial nerves grossly intact; no facial asymmetry, power and sensation grossly intact. LYMPHATICS: No lymph nodes palpable in the axilla and neck INVESTIGATIONS, reviewed in the clinical context: White count 7.3 hemoglobin 12.5 platelets 219 sodium 140 potassium 4.9 BUN 33 creatinine 0.68 Influenza type A, E, RSV, COVID-19: Not detected EKG tracing personally reviewed by me-sinus rhythm. Rate 66, right bundle- branch block Chest x-ray film personally reviewed by me-lower zone infiltrate Assessment and plan: -Pneumonia suspect gram-negative organism IV ceftriaxone -History of chronic brain injury -Severe cognitive impairment from underlying prior brain injury -Obesity BMI 36.6 -Hyperlipidemia Lipitor -Seizure disorder Depakote -Essential hypertension Lisinopril -Acute metabolic encephalopathy from underlying infection. Patient was noticed to be more lethargic from his baseline per the staff that he lives. IV ceftriaxone. Resume home medications. Pured diet. Aspiration precautions. IV fluids procalcitonin Past Medical History Past Medical History: Seizure Disorder Additional Past Medical History / Comment(s): brain injury, lt foot drop, chronic uti, depression, throat polyps, hiatal hernia; recurrent UTI; cognitive emotional volatility, History of Any Multi-Drug Resistant Organisms: None Reported Past Surgical History: Unable to Obtain Past Anesthesia/Blood Transfusion Reactions: No Reported Reaction Past Psychological History: Depression Past Alcohol Use History: None Reported Past Drug Use History: None Reported - Past Family History Father Family Medical History: Unable to Obtain Mother Family Medical History: Unable to Obtain Medications and Allergies Home Medications Medication Instructions Recorded Confirmed Type ARIPiprazole [Abilify] 10 mg PO HS@199902/03/14 11/02/22 History ARIPiprazole [Abilify] 15 mg PO DAILY@79902/03/14 11/02/22 History Clotrimazole/Betamethasone Dip 1 applic TOPICAL BID@799,199902/03/14 11/02/22 History [Lotrisone Cream] diphenhydrAMINE [Benadryl] 25 mg PO QID PRN 02/03/14 11/02/22 History Ibuprofen [Motrin] 600 mg PO BID PRN 06/25/16 11/02/22 History Loperamide [Imodium] 2 - 4 mg PO QID PRN 06/25/16 11/02/22 History guaiFENesin [Mucinex] 600 mg PO BID PRN 06/25/16 11/02/22 History guaiFENesin-DM 100-10MG/5ML 10 ml PO Q4H PRN 06/25/16 11/02/22 History [Robitussin DM] Ergocalciferol (Vitamin D2) 1,250 mcg PO Q30D 12/18/17 11/02/22 History [Vitamin D2] Folic Acid 1 mg PO DAILY@0800 12/18/17 11/02/22 History Magnesium Hydroxide [Milk of 2,400 mg PO Q72H PRN 12/18/17 11/02/22 History Magnesia] Acetaminophen Tab [Tylenol Tab] 1,000 mg PO Q6H PRN MDD 3GM OF 03/16/21 11/02/22 History ACETAMINOPHEN Atorvastatin [Lipitor] 40 mg PO HS@199903/16/21 11/02/22 History Cetirizine HCl 10 mg PO DAILY 03/16/21 11/02/22 History Divalproex [Depakote] 500 mg PO TID 03/16/21 11/02/22 History Fish Oil/Dha/Epa [Fish Oil 1,200 1 cap PO BID 03/16/21 11/02/22 History mg Fish Oil] Nystatin [Nystop] 1 applic TOPICAL BID 03/16/21 11/02/22 History Omeprazole 20 mg PO DAILY@0800 03/16/21 11/02/22 History Salicylic Acid [T-Davon] 1 applic TOPICAL DIRECTED PRN 03/16/21 11/02/22 Hi story metHOTREXate sodium [Methotrexate] 15 mg PO WE 03/16/21 11/02/22 History risperiDONE [RisperDAL] 3 mg PO DAILY@0800 03/16/21 11/02/22 History ALPRAZolam [Xanax] 0.5 mg PO BID 11/02/22 11/02/22 History Acetaminophen [Tylenol Arthritis] 650 mg PO BID MDD 3GM OF 11/02/22 11/02/22 History ACETAMINOPHEN Albuterol Nebulized [Ventolin 2.5 mg INHALATION RT-QID 11/02/22 11/02/22 History Nebulized] Diclofenac Sodium [Voltaren 1 applic TOPICAL TID 11/02/22 11/02/22 History Arthritis Pain 1% Gel] FLUoxetine HCL 40 mg PO DAILY 11/02/22 11/02/22 History Fluconazole 200 mg PO DAILY 11/02/22 11/02/22 History HYDROcodone/APAP [[place] Elixir 15 ml PO TID MDD 3GM OF 11/02/22 11/02/22 History 7.5-325Mg/15Ml] ACETAMINOPHEN Levofloxacin [Levaquin] 750 mg PO DAILY 11/02/22 11/02/22 History Nystatin 100,000Unit/gm Cream 1 applic TOPICAL BID 11/02/22 11/02/22 History [Mycostatin Cream] Sennosides [Senokot] 8.6 mg PO BID 11/02/22 11/02/22 History Terbinafine 1% Cream [LamISIL] 1 applic TOPICAL BID 11/02/22 11/02/22 History lisinopriL [Zestril] 5 mg PO DAILY PRN 11/02/22 11/02/22 History predniSONE 10 mg PO DAILY 11/02/22 11/02/22 History Allergies Allergy/AdvReac Type Severity Reaction Status Date / Time Sulfa (Sulfonamide Allergy Unknown Verified 11/02/22 15:46 Antibiotics) Physical Exam Vitals: Vital Signs Temp Pulse Resp BP Pulse Ox 11/02/22 19:48 50 L 16 168/82 95 11/02/22 18:47 61 18 141/74 94 L 11/02/22 15:29 99.2 F 73 18 123/73 93 L Intake and Output 11/02/22 11/02/22 11/02/22 06:59 14:59 22:59 Other: Weight 99.79 kg Results CBC & Chem 7: 11/02/22 15:41 11/02/22 15:41 Labs: Abnormal Lab Results - Last 24 Hours (Table) 11/02/22 11/02/22 11/02/22 Range/Units 15:41 15:41 16:09 APTT 21.6 L (22.0-30.0) sec Carbon Dioxide 31 H (22-30) mmol/L BUN 33 H (7-17) mg/dL Glucose 100 H (74-99) mg/dL Urine Protein Trace H (Negative) Urine Ketones Trace H (Negative)
[2022-11-02] MEDS: DIVALPROEX 500 MG TABLET.DR PO SCH (22:37)
[2022-11-02] MEDS: SENNOSIDES 8.6 MG TAB PO SCH (22:37)
[2022-11-02] MEDS: ACETAMINOPHEN TAB 325 MG TAB PO SCH (22:40)
[2022-11-02] MEDS: NYSTATIN 100,000UNIT/GM CREAM 30 GM TUBE TOPICAL SCH (22:41)
[2022-11-02] MEDS: TERBINAFINE 1% CREAM 15 GM TUBE TOPICAL SCH (22:41)
[2022-11-02] MEDS: ALPRAZolam 0.5 MG TAB PO SCH (22:41)
[2022-11-02] MEDS: NYSTATIN 100,000 UNIT/GM POWD 15 GM TOPICAL SCH (22:41)
[2022-11-02] MEDS: DICLOFENAC SODIUM GEL 100 GM TUBE TOPICAL SCH (22:41)
[2022-11-02] MEDS: HYDROcodone/APAP 15 ML SOLUTION PO SCH (22:41)
[2022-11-02] MEDS: DEXTROSE 5%-0.45% NACL 1,000 ML IV SCH (23:05)
[2022-11-03] MEDS: ALBUTEROL NEBULIZED 2.5 MG/3 ML INHALATION SCH ×4 (08:18→19:38)
--- NOTE | 2022-11-03 08:30 | XR ---
EXAMINATION TYPE: XR chest 1V portable DATE OF EXAM: 11/03/2022 COMPARISON: 11/02/2022 HISTORY: Cough TECHNIQUE: Single frontal view of the chest is obtained. FINDINGS: Heart size is normal and there is bilateral lower lobe infiltrate. No sizable pleural effu bulmaro or pneumothorax. There is a somewhat coarsened interstitium. Osseous structures are stable. IMPRESSION: 1. Bilateral lower lobe infiltrate correlate for pneumonia otherwise consider CHF.
[2022-11-03] MEDS: DEXTROSE 5%-0.45% NACL 1,000 ML IV SCH ×2 (08:57→17:20)
[2022-11-03] MEDS: ACETAMINOPHEN TAB 325 MG TAB PO SCH ×2 (08:59→21:15)
[2022-11-03] MEDS: risperiDONE 1 MG TAB PO SCH (08:59)
[2022-11-03] MEDS: predniSONE 10 MG TAB PO SCH (09:00)
[2022-11-03] MEDS: DIVALPROEX 500 MG TABLET.DR PO SCH ×3 (09:00→21:15)
[2022-11-03] MEDS ORDERED: metHOTREXate sodium 2.5 MG TAB PO SCH (09:00)
[2022-11-03] MEDS ORDERED: FLUCONAZOLE 100 MG TAB PO SCH (09:00)
[2022-11-03] MEDS: ALPRAZolam 0.5 MG TAB PO SCH ×2 (09:00→21:34)
[2022-11-03] MEDS: FLUoxetine HCL 20 MG CAP PO SCH (09:00)
[2022-11-03] MEDS: LORATADINE 10 MG TAB PO SCH (09:00)
[2022-11-03] MEDS: FOLIC ACID 1 MG TAB PO SCH (09:00)
[2022-11-03] MEDS: SENNOSIDES 8.6 MG TAB PO SCH ×2 (09:00→21:15)
[2022-11-03] MEDS: PANTOPRAZOLE 40 MG TABLET PO SCH (09:00)
[2022-11-03] MEDS: CLOTRIMAZOLE/BETAMETH 1-0.05% CREAM 45 GM TUBE TOPICAL SCH ×2 (09:02→21:26)
[2022-11-03] MEDS: NYSTATIN 100,000 UNIT/GM POWD 15 GM TOPICAL SCH ×2 (09:02→21:26)
[2022-11-03] MEDS: NYSTATIN 100,000UNIT/GM CREAM 30 GM TUBE TOPICAL SCH ×2 (09:02→21:26)
[2022-11-03] MEDS: DICLOFENAC SODIUM GEL 100 GM TUBE TOPICAL SCH ×3 (09:03→21:25)
[2022-11-03] MEDS: TERBINAFINE 1% CREAM 15 GM TUBE TOPICAL SCH ×2 (09:03→21:26)
[2022-11-03] MEDS: HYDROcodone/APAP 15 ML SOLUTION PO SCH ×3 (09:18→21:16)
[2022-11-03] MEDS: ARIPiprazole 15 MG TAB PO SCH (09:19)
--- NOTE | 2022-11-03 19:13 | P.CONS ---
History of Present Illness - Reason for Consult Consult date: 11/03/22 Pneumonia Requesting physician: Emmanuel Rossi - Chief Complaint Fever and mental status changes x one day - History of Present Illness patient is a 56-year-old female with a past medical history significant for seizure disorder depression history of brain injury cognitive and emotional vitality and longterm resident patient was sent to the ER yesterday afternoon after the patient was noticed to have a low-grade fever along with mental status changes the patient has been refusing to eat or drink so they decided to send the patient to the ER in this patient apparently did have a history of recurrent UTI and was currently getting treatment with the ora l Levaquin patient on presentation to the hospital did have a low-grade fever of 99.2 F the patient was mildly hypoxic currently on supplemental oxygen patient did have a normal white count kidney function was normal liver exams are normal urine has been negative influenza RSV and COVID testing was negative blood cultures obtained which are currently pending patient did have a chest x-ray increased airspace opacity lung bases correlate for pneumonia patient did have a chest x-ray repeated this morning bilateral lobe infiltrate correlate for pneumonia otherwise consider CHF patient was started on Rocephin and Zithromax infectious disease was consulted for further management of antibiotic therapy most information has been been from review the chart and nursing staff as the patient herself was not good historian Review of Systems Positive point has been mentioned in the HPI rest of the systems are negative Past Medical History Past Medical History: Seizure Disorder Additional Past Medical History / Comment(s): brain injury, lt foot drop, chronic uti, depression, throat polyps, hiatal hernia; recurrent UTI; cognitive emotional volatility, History of Any Multi-Drug Resistant Organisms: None Reported Past Surgical History: Unable to Obtain Past Anesthesia/Blood Transfusion Reactions: No Reported Reaction Past Psychological History: Depression Past Alcohol Use History: None Reported Past Drug Use History: None Reported - Past Family History Father Family Medical History: Unable to Obtain Mother Family Medical History: Unable to Obtain Medications and Allergies Home Medications Medication Instructions Recorded Confirmed Type ARIPiprazole [Abilify] 10 mg PO HS@199902/03/14 11/02/22 History ARIPiprazole [Abilify] 15 mg PO DAILY@79902/03/14 11/02/22 History Clotrimazole/Betamethasone Dip 1 applic TOPICAL BID@0800,199902/03/14 11/02/22 History [Lotrisone Cream] diphenhydrAMINE [Benadryl] 25 mg PO QID PRN 02/03/14 11/02/22 History Ibuprofen [Motrin] 600 mg PO BID PRN 06/25/16 11/02/22 History Loperamide [Imodium] 2 - 4 mg PO QID PRN 06/25/16 11/02/22 History guaiFENesin [Mucinex] 600 mg PO BID PRN 06/25/16 11/02/22 History guaiFENesin-DM 100-10MG/5ML 10 ml PO Q4H PRN 06/25/16 11/02/22 History [Robitussin DM] Ergocalciferol (Vitamin D2) 1,250 mcg PO Q30D 12/18/17 11/02/22 History [Vitamin D2] Folic Acid 1 mg PO DAILY@79912/18/17 11/02/22 History Magnesium Hydroxide [Milk of 2,400 mg PO Q72H PRN 12/18/17 11/02/22 History Magnesia] Atorvastatin [Lipitor] 40 mg PO HS@199903/16/21 11/02/22 History Divalproex [Depakote] 500 mg PO TID 03/16/21 11/02/22 History Fish Oil/Dha/Epa [Fish Oil 1,200 1 cap PO BID 03/16/21 11/02/22 History mg Fish Oil] Nystatin [Nystop] 1 applic TOPICAL BID 03/16/21 11/02/22 History Omeprazole 20 mg PO DAILY@79903/16/21 11/02/22 History Salicylic Acid [T-Davon] 1 applic TOPICAL DIRECTED PRN 03/16/21 11/02/22 History metHOTREXate sodium [Methotrexate] 15 mg PO WE 03/16/21 11/02/22 History risperiDONE [RisperDAL] 3 mg PO DAILY@79903/16/21 11/02/22 History Acetaminophen [Tylenol Arthritis] 650 mg PO BID MDD 3GM OF 11/02/22 11/02/22 History ACETAMINOPHEN Albuterol Nebulized [Ventolin 2.5 mg INHALATION RT-QID 11/02/22 11/02/22 History Nebulized] Diclofenac Sodium [Voltaren 1 applic TOPICAL TID 11/02/22 11/02/22 History Arthritis Pain 1% Gel] FLUoxetine HCL 40 mg PO DAILY 11/02/22 11/02/22 History Nystatin 100,000Unit/gm Cream 1 applic TOPICAL BID 11/02/22 11/02/22 History [Mycostatin Cream] Sennosides [Senokot] 8.6 mg PO BID 11/02/22 11/02/22 History Terbinafine 1% Cream [LamISIL] 1 applic TOPICAL BID 11/02/22 11/02/22 History lisinopriL [Zestril] 5 mg PO DAILY PRN 11/02/22 11/02/22 History predniSONE 10 mg PO DAILY 11/02/22 11/02/22 History ALPRAZolam [Xanax] 0.5 mg PO BID #6 tab 11/05/22 Rx Acetaminophen Tab [Tylenol] 500 mg PO Q6H PRN #0 MDD 3GM OF 11/05/22 11/02/22 Rx ACETAMINOPHEN HYDROcodone/APAP [Clinton Elixir 15 ml PO TID #150 ml MDD 3GM OF 11/05/22 Rx 7.5-325Mg/15Ml] ACETAMINOPHEN Allergies Allergy/AdvReac Type Severity Reaction Status Date / Time Sulfa (Sulfonamide Allergy Unknown Verified 11/02/22 15:46 Antibiotics) Physical Exam Vitals: Vital Signs Temp Pulse Resp BP Pulse Ox 11/03/22 11:10 71 20 142/79 95 11/03/22 08:29 61 11/03/22 08:23 95 11/03/22 08:19 59 L 11/03/22 06:22 97.9 F 53 L 14 158/75 98 11/02/22 22:35 97.4 F L 50 L 14 157/89 97 11/02/22 19:48 50 L 16 168/82 95 11/02/22 18:47 61 18 141/74 94 L 11/02/22 15:29 99.2 F 73 18 123/73 93 L Intake and Output 11/02/22 11/03/22 11/03/22 22:59 06:59 14:59 Other: Weight 99.79 kg GENERAL DESCRIPTION: Middle-aged female lying in bed, no distress. No tachypnea or accessory muscle of respiration use. HEENT: Shows Pallor , no scleral icterus. Oral mucous membrane is dry. No pharyngeal erythema or thrush NECK: Trachea central, no thyromegaly. LUNGS: Unlabored breathing. Decreased breath sound the bases. HEART: S1, S2, regular rate and rhythm. No loud murmur ABDOMEN: Soft, no tenderness , guarding or rigidity, no organomegaly EXTREMITIES: No edema of feet. SKIN: No rash, no masses palpable. NEUROLOGICAL: The patient is awake, alert, oriented x2, mood and affect normal. Results CBC & Chem 7: 11/04/22 06:24 11/04/22 06:24 Labs: Abnormal Lab Results - Last 24 Hours (Table) 11/02/22 11/02/22 11/02/22 Range/Units 15:41 15:41 16:09 APTT 21.6 L (22.0-30.0) sec Carbon Dioxide 31 H (22-30) mmol/L BUN 33 H (7-17) mg/dL Glucose 100 H (74-99) mg/dL Urine Protein Trace H (Negative) Urine Ketones Trace H (Negative) Assessment and Plan (1) Altered mental status Current Visit: Yes Status: Acute Code(s): R41.82 - ALTERED MENTAL STATUS, UNSPECIFIED SNOMED Code(s): 950427798 (2) Pneumonia Current Visit: Yes Status: Acute Code(s): J18.9 - PNEUMONIA, UNSPECIFIED ORGANISM SNOMED Code(s): 553622221 Plan: 1patient presented to hospital with mental status changes decreased oral intake and this patient apparently was getting treatment for UTI with Levaquin at the longterm no evidence of bilateral basilar infiltrate question of possible nosocomial pneumonia as the patient is longterm resident and will need to cover for the resistant gram-negative 2obtain sputum for Gram stain and culture, check a CRP and a procalcitonin 3-discontinue Rocephin and Zithromax 4-start the patient on Zosyn We will follow on clinical condition and cultures to further adjust medication if needed Thank you for this consultation we will follow the patient along with you Time with Patient: Greater than 30
--- NOTE | 2022-11-03 19:44 | P.PN ---
Progress Note - Text Progress Note Date: 11/03/22 Chief Complaint: Fever This is a 56-year-old patient, follows with visiting physicians Dr. Mary. Chronic stable medical conditions include seizure disorder, brain injury, left foot drop, chronic UTIs, depression, hiatal hernia, cognitive emotional volatility, depression. Patient does attempt to speak but words not discernible. By the EMS report patient's AO 1 at baseline. Patient was diagnosed with UTI. Prescribed Levaquin continued to decline. Patient is more lethargic than normal and is refusing to eat or drink. Patient does sound a bit congested. Admitted with pneumonia, acute metabolic and some patchy/delirium. IV ceftriaxone. 11/03/2022: Saw patient in ER again today over flow. Patient is more awake. Able to answer simple questions. Feels hungry. Pured diet ordered. Spoke to the nurse. Less congestion in the chest. Active Medications Acetaminophen (Acetaminophen Tab 325 Mg Tab) 650 mg PO BID [facility] Last Admin: 11/03/22 08:59 Dose: 650 mg Acetaminophen (Acetaminophen Tab 500 Mg Tab) 1,000 mg PO Q6H PRN PRN Reason: Fever and/ or Pain Hydrocodone Bitart/Acetaminophen (Hydrocodone/Apap 15 Ml Solution) 15 ml PO TID [facility] Last Admin: 11/03/22 16:19 Dose: 15 ml Albuterol Sulfate (Albuterol Nebulized 2.5 Mg/3 Ml) 2.5 mg INHALATION RT-QID [facility] Last Admin: 11/03/22 19:38 Dose: 2.5 mg Alprazolam (Alprazolam 0.5 Mg Tab) 0.5 mg PO BID [facility] Last Admin: 11/03/22 09:00 Dose: 0.5 mg Aripiprazole (Aripiprazole 10 Mg Tab) 10 mg PO HS@1999 [facility] Aripiprazole (Aripiprazole 15 Mg Tab) 15 mg PO DAILY@0800 [facility] Last Admin: 11/03/22 09:19 Dose: 15 mg Atorvastatin Calcium (Atorvastatin 40 Mg Tab) 40 mg PO HS@1999 [facility] Betamethasone/Clotrimazole (Clotrimazole/Betameth 1-0.05% Cream 45 Gm Tube) 1 applic TOPICAL BID@0800,1999 [facility]; Protocol Last Admin: 11/03/22 09:02 Dose: 1 applic Diclofenac Sodium (Diclofenac Sodium Gel 100 Gm Tube) 4 gm TOPICAL TID [facility]; Protocol Last Admin: 11/03/22 17:19 Dose: 4 gm Divalproex Sodium (Divalproex 500 Mg Tablet.Dr) 500 mg PO TID [facility] Last Admin: 11/03/22 16:21 Dose: 500 mg Fluoxetine HCl (Fluoxetine Hcl 20 Mg Cap) 40 mg PO DAILY [facility] Last Admin: 11/03/22 09:00 Dose: 40 mg Folic Acid (Folic Acid 1 Mg Tab) 1 mg PO DAILY@0800 [facility] Last Admin: 11/03/22 09:00 Dose: 1 mg Dextrose/Sodium Chloride (Dextrose 5%-1/2ns Iv Soln) 1,000 mls @ 100 mls/hr IV .Q10H [facility] Last Admin: 11/03/22 17:20 Dose: 100 mls/hr Piperacillin Sod/Tazobactam (Sod 3.375 gm/ Sodium Chloride) 100 mls @ 25 mls/hr IVPB Q8HR [facility]; Protocol Ibuprofen (Ibuprofen 600 Mg Tab) 600 mg PO BID PRN PRN Reason: Pain Lisinopril (Lisinopril 5 Mg Tab) 5 mg PO DAILY PRN PRN Reason: HOLD FOR SBP<110 Loratadine (Loratadine 10 Mg Tab) 10 mg PO DAILY [facility] Last Admin: 11/03/22 09:00 Dose: 10 mg Magnesium Hydroxide (Magnesium Hydroxide 2,400 Mg/10 Ml Cup) 2,400 mg PO Q72H PRN PRN Reason: Constipation Methotrexate (Methotrexate Sodium 2.5 Mg Tab) 15 mg PO WE [facility] Last Admin: 11/03/22 09:19 Dose: 15 mg Miscellaneous Information (Pneumonia Protocol Utilized 1 Each Misc) 1 each PO ONCE PRN PRN Reason: Per Protocol Nystatin (Nystatin 100,000 Unit/Gm Powd 15 Gm) 1 applic TOPICAL BID [facility]; Protocol Last Admin: 11/03/22 09:02 Dose: 1 applic Nystatin (Nystatin 100,000unit/Gm Cream 30 Gm Tube) 1 applic TOPICAL BID [facility]; Protocol Last Admin: 11/03/22 09:02 Dose: 1 applic Pantoprazole Sodium (Pantoprazole 40 Mg Tablet) 40 mg PO DAILY@0800 [facility] Last Admin: 11/03/22 09:00 Dose: 40 mg Prednisone (Prednisone 10 Mg Tab) 10 mg PO DAILY [facility] Last Admin: 11/03/22 09:00 Dose: 10 mg Risperidone (Risperidone 1 Mg Tab) 3 mg PO DAILY@0800 [facility] Last Admin: 11/03/22 08:59 Dose: 3 mg Senna (Sennosides 8.6 Mg Tab) 8.6 mg PO BID [facility] Last Admin: 11/03/22 09:00 Dose: 8.6 mg Terbinafine HCl (Terbinafine 1% Cream 15 Gm Tube) 1 applic TOPICAL BID [facility]; Protocol Last Admin: 11/03/22 09:03 Dose: 1 applic Social history: No smoking or alcohol. At [facility] Physical examination: VITAL SIGNS: 98, 68, 16, 140/85, 95% on 5 L GENERAL:, laying in bed more awake and comfortable EYES: Pupils equal. Conjunctiva normal. HEENT: External appearance of nose and ears normal, oral cavity grossly normal. NECK: JVD unable to assess masses not palpable. HEART: First and second heart sounds are normal; no edema. LUNGS: Respiratory rate increased; decreased breath sounds. ABDOMEN: Soft, nontender, liver spleen not palpable, no masses palpable. PSYCH: Some simple questions. MUSCULOSKELETAL:No Clubbing/cyanosis;muscles-grossly intact. Left foot drop INVESTIGATIONS, reviewed in the clinical context: Procalcitonin 0.06 White count 7.3 hemoglobin 12.5 platelets 219 sodium 140 potassium 4.9 BUN 33 creatinine 0.68 Influenza type A, E, RSV, COVID-19: Not detected EKG tracing personally reviewed by me-sinus rhythm. Rate 66, right bundle-bran ch block Chest x-ray film personally reviewed by me-lower zone infiltrate Assessment and plan: -Pneumonia suspect gram-negative organism: Improving IV ceftriaxone -History of chronic brain injury -Severe cognitive impairment from underlying prior brain injury -Obesity BMI 36.6 -Hyperlipidemia Lipitor -Seizure disorder Depakote -Essential hypertension Lisinopril -Acute metabolic encephalopathy from underlying infection. Patient was noticed to be more lethargic from his baseline per the staff that he lives.: Better IV ceftriaxone. Pured diet. Aspiration precautions. Tapered on oxygen. If continues to improve home tomorrow.
[2022-11-03] MEDS ORDERED: AZITHROMYCIN 500 MG TAB PO SCH (21:00)
[2022-11-03] MEDS: ATORVASTATIN 40 MG TAB PO SCH (21:15)
[2022-11-04] MEDS: PIPERACILLIN-TAZOBACTAM 3.375 GM in SODIUM CHLORIDE 0.9% 100 ML IVPB SCH ×4 (00:43→23:21)
[2022-11-04] MEDS: ARIPiprazole 10 MG TAB PO SCH ×2 (00:43→20:45)
[2022-11-04] MEDS: DEXTROSE 5%-0.45% NACL 1,000 ML IV SCH ×3 (03:17→22:58)
[2022-11-04 07:39] VITALS: RESP 18
[2022-11-04] MEDS: FLUoxetine HCL 20 MG CAP PO SCH (08:26)
[2022-11-04] MEDS: DIVALPROEX 500 MG TABLET.DR PO SCH ×3 (08:27→20:44)
[2022-11-04] MEDS: SENNOSIDES 8.6 MG TAB PO SCH ×2 (08:27→20:44)
[2022-11-04] MEDS: predniSONE 10 MG TAB PO SCH (08:27)
[2022-11-04] MEDS: FOLIC ACID 1 MG TAB PO SCH (08:27)
[2022-11-04] MEDS: ALPRAZolam 0.5 MG TAB PO SCH ×2 (08:27→20:44)
[2022-11-04] MEDS: LORATADINE 10 MG TAB PO SCH (08:27)
[2022-11-04] MEDS: PANTOPRAZOLE 40 MG TABLET PO SCH (08:27)
[2022-11-04] MEDS: ARIPiprazole 15 MG TAB PO SCH (08:28)
[2022-11-04] MEDS: ACETAMINOPHEN TAB 325 MG TAB PO SCH ×2 (08:28→20:43)
[2022-11-04] MEDS: HYDROcodone/APAP 15 ML SOLUTION PO SCH ×3 (08:29→20:43)
[2022-11-04] MEDS: NYSTATIN 100,000 UNIT/GM POWD 15 GM TOPICAL SCH ×2 (08:30→20:45)
[2022-11-04] MEDS: TERBINAFINE 1% CREAM 15 GM TUBE TOPICAL SCH ×2 (08:31→20:45)
[2022-11-04] MEDS: NYSTATIN 100,000UNIT/GM CREAM 30 GM TUBE TOPICAL SCH ×2 (08:31→20:44)
[2022-11-04] MEDS: DICLOFENAC SODIUM GEL 100 GM TUBE TOPICAL SCH ×3 (08:31→20:44)
[2022-11-04] MEDS: CLOTRIMAZOLE/BETAMETH 1-0.05% CREAM 45 GM TUBE TOPICAL SCH ×2 (08:33→20:44)
[2022-11-04] MEDS: risperiDONE 1 MG TAB PO SCH (08:34)
[2022-11-04 08:58] LABS: African American GFR (CKD) 123.6 (60.0-200.0); Albumin 3.4 g/dL (3.8-4.9); Albumin/Globulin Ratio 1.31 (1.60-3.17); Anion Gap 11.9 mmol/L (10.00-18.00); BUN/Creat Ratio 25.2 Ratio (12.00-20.00); Blood Urea Nitrogen 12.6 mg/dL (9.0-27.0); C Reactive Protein 1.6 mg/dL (0.00-0.80); Calcium 8.7 mg/dL (8.7-10.3); Carbon Dioxide 26.1 mmol/L (20.0-27.5); Globulin 2.6 g/dL (1.6-3.3); Non-African American GFR(CKD) 106.7 (60.0-200.0); Potassium 4.1 mmol/L (3.5-5.5); Total Bilirubin 0.2 mg/dL (0.30-1.20)
[2022-11-04] MEDS: ALBUTEROL NEBULIZED 2.5 MG/3 ML INHALATION SCH ×4 (09:17→20:43)
[2022-11-04 10:00] LABS: Basophils # (A) 0.04 X 10*3/uL (0.00-0.10); Basophils % (A) 0.6 %; Eosinophils # (A) 0.05 X 10*3/uL (0.04-0.35); Eosinophils % (A) 0.7 %; HCT 34.8 % (37.2-46.3); HGB 11.1 g/dL (12.0-15.0); Immature Grans, Automated 1.9 %; Lymphocytes # (A) 1.22 X 10*3/uL (0.90-5.00); Lymphocytes % (A) 17.8 %; MCH 30.2 pg (27.0-32.0); MCHC 31.9 g/dL (32.0-37.0); MCV 94.8 fL (80.0-97.0); Mean Platelet Volume 9.8 fL (9.5-12.2); Monocytes # (A) 0.51 X 10*3/uL (0.20-1.00); Monocytes % (A) 7.4 %; NRBC Per 100 WBC 0 /100 WBCS (0.0-0.0); Neutrophils # (A) 4.91 X 10*3/uL (1.80-7.70); Neutrophils % (A) 71.6 %; Platelet Count 197 X 10*3/uL (140-440); RBC 3.67 X 10*6/uL (4.10-5.20); RDW 14.3 % (11.5-14.5); WBC 6.86 X 10*3/uL (4.50-10.00)
--- NOTE | 2022-11-04 18:21 | P.PN ---
Progress Note - Text Progress Note Date: 11/04/22 Chief Complaint: Fever This is a 56-year-old patient, follows with visiting physicians Dr. Mary. Chronic stable medical conditions include seizure disorder, brain injury, left foot drop, chronic UTIs, depression, hiatal hernia, cognitive emotional volatility, depression. Patient does attempt to speak but words not discernible. By the EMS report patient's AO 1 at baseline. Patient was diagnosed with UTI. Prescribed Levaquin continued to decline. Patient is more lethargic than normal and is refusing to eat or drink. Patient does sound a bit congested. Admitted with pneumonia, acute metabolic and some patchy/delirium. IV ceftriaxone. 11/03/2022: Saw patient in ER again today over flow. Patient is more awake. Able to answer simple questions. Feels hungry. Pured diet ordered. Spoke to the nurse. Less congestion in the chest. 11/04/2022: In bed. Recling. Awake. Answers simple questions. Oral intake fair. Afebrile. Discussed with ID. At least 1 more day of antibiotic. Negative procalcitonin. Active Medications Acetaminophen (Acetaminophen Tab 325 Mg Tab) 650 mg PO BID [facility] Last Admin: 11/04/22 08:28 Dose: 650 mg Acetaminophen (Acetaminophen Tab 500 Mg Tab) 1,000 mg PO Q6H PRN PRN Reason: Fever and/ or Pain Hydrocodone Bitart/Acetaminophen (Hydrocodone/Apap 15 Ml Solution) 15 ml PO TID [facility] Last Admin: 11/04/22 15:38 Dose: 15 ml Albuterol Sulfate (Albuterol Nebulized 2.5 Mg/3 Ml) 2.5 mg INHALATION RT-QID [facility] Last Admin: 11/04/22 15:46 Dose: 2.5 mg Alprazolam (Alprazolam 0.5 Mg Tab) 0.5 mg PO BID [facility] Last Admin: 11/04/22 08:27 Dose: 0.5 mg Aripiprazole (Aripiprazole 10 Mg Tab) 10 mg PO HS@1999 [facility] Last Admin: 11/04/22 00:43 Dose: 10 mg Aripiprazole (Aripiprazole 15 Mg Tab) 15 mg PO DAILY@0800 [facility] Last Admin: 11/04/22 08:28 Dose: 15 mg Atorvastatin Calcium (Atorvastatin 40 Mg Tab) 40 mg PO HS@1999 [facility] Last Admin: 11/03/22 21:15 Dose: 40 mg Betamethasone/Clotrimazole (Clotrimazole/Betameth 1-0.05% Cream 45 Gm Tube) 1 applic TOPICAL BID@0800,1999 [facility]; Protocol Last Admin: 11/04/22 08:33 Dose: 1 applic Diclofenac Sodium (Diclofenac Sodium Gel 100 Gm Tube) 4 gm TOPICAL TID [facility]; Protocol Last Admin: 11/04/22 15:35 Dose: 4 gm Divalproex Sodium (Divalproex 500 Mg Tablet.Dr) 500 mg PO TID [facility] Last Admin: 11/04/22 15:35 Dose: 500 mg Fluoxetine HCl (Fluoxetine Hcl 20 Mg Cap) 40 mg PO DAILY [facility] Last Admin: 11/04/22 08:26 Dose: 40 mg Folic Acid (Folic Acid 1 Mg Tab) 1 mg PO DAILY@0800 [facility] Last Admin: 11/04/22 08:27 Dose: 1 mg Dextrose/Sodium Chloride (Dextrose 5%-1/2ns Iv Soln) 1,000 mls @ 100 mls/hr IV .Q10H [facility] Last Admin: 11/04/22 13:14 Dose: 100 mls/hr Piperacillin Sod/Tazobactam (Sod 3.375 gm/ Sodium Chloride) 100 mls @ 25 mls/hr IVPB Q8HR [facility]; Protocol Last Admin: 11/04/22 15:34 Dose: 25 mls/hr Ibuprofen (Ibuprofen 600 Mg Tab) 600 mg PO BID PRN PRN Reason: Pain Lisinopril (Lisinopril 5 Mg Tab) 5 mg PO DAILY PRN PRN Reason: HOLD FOR SBP<110 Loratadine (Loratadine 10 Mg Tab) 10 mg PO DAILY [facility] Last Admin: 11/04/22 08:27 Dose: 10 mg Magnesium Hydroxide (Magnesium Hydroxide 2,400 Mg/10 Ml Cup) 2,400 mg PO Q72H PRN PRN Reason: Constipation Methotrexate (Methotrexate Sodium 2.5 Mg Tab) 15 mg PO WE [facility] Last Admin: 11/03/22 09:19 Dose: 15 mg Miscellaneous Information (Pneumonia Protocol Utilized 1 Each Misc) 1 each PO ONCE PRN PRN Reason: Per Protocol Nystatin (Nystatin 100,000 Unit/Gm Powd 15 Gm) 1 applic TOPICAL BID [facility]; Protocol Last Admin: 11/04/22 08:30 Dose: 1 applic Nystatin (Nystatin 100,000unit/Gm Cream 30 Gm Tube) 1 applic TOPICAL BID [facility]; Protocol Last Admin: 11/04/22 08:31 Dose: 1 applic Pantoprazole Sodium (Pantoprazole 40 Mg Tablet) 40 mg PO DAILY@0800 [facility] Last Admin: 11/04/22 08:27 Dose: 40 mg Prednisone (Prednisone 10 Mg Tab) 10 mg PO DAILY [facility] Last Admin: 11/04/22 08:27 Dose: 10 mg Risperidone (Risperidone 1 Mg Tab) 3 mg PO DAILY@0800 [facility] Last Admin: 11/04/22 08:34 Dose: 3 mg Senna (Sennosides 8.6 Mg Tab) 8.6 mg PO BID [facility] Last Admin: 11/04/22 08:27 Dose: 8.6 mg Terbinafine HCl (Terbinafine 1% Cream 15 Gm Tube) 1 applic TOPICAL BID [facility]; Protocol Last Admin: 11/04/22 08:31 Dose: 1 applic Social history: No smoking or alcohol. At [facility] Physical examination: VITAL SIGNS: 97.5, 55, 18, 146/70, 98% on 5 L GENERAL:, laying in bed , and comfortable EYES: Pupils equal. Conjunctiva normal. HEENT: External appearance of nose and ears normal, oral cavity grossly normal. NECK: JVD unable to assess masses not palpable. HEART: First and second heart sounds are normal; no edema. LUNGS: Respiratory rate normal; clear ABDOMEN: Soft, nontender, liver spleen not palpable, no masses palpable. PSYCH: Some simple questions. MUSCULOSKELETAL:No Clubbing/cyanosis;muscles-grossly intact. Left foot drop INVESTIGATIONS, reviewed in the clinical context: November 04: White count 6.8 hemoglobin 11.1 platelets 197 potassium 4.1 creatinine 0.5 procalcitonin 0.06 Procalcitonin 0.06 White count 7.3 hemoglobin 12.5 platelets 219 sodium 140 potassium 4.9 BUN 33 creatinine 0.68 Influenza type A, E, RSV, COVID-19: Not detected EKG tracing personally reviewed by me-sinus rhythm. Rate 66, right bundle- branch block Chest x-ray film personally reviewed by me-lower zone infiltrate Assessment and plan: -Pneumonia suspect gram-negative organism: Improving IV ceftriaxone -History of chronic brain injury -Severe cognitive impairment from underlying prior brain injury -Obesity BMI 36.6 -Hyperlipidemia Lipitor -Seizure disorder Depakote -Essential hypertension Lisinopril -Acute metabolic encephalopathy from underlying infection. Patient was noticed to be more lethargic from his baseline per the staff that he lives.: Improved IV ceftriaxone. Pured diet. Aspiration precautions. Cutback oxygen. Discussed with ID. One more day of antibiotic. Hopefully discharge [facility] tomorrow.
[2022-11-04] MEDS: ATORVASTATIN 40 MG TAB PO SCH (20:44)
[2022-11-05 07:34] VITALS: BP 145/90; TEMP 98.6
[2022-11-05] MEDS: ALBUTEROL NEBULIZED 2.5 MG/3 ML INHALATION SCH ×4 (08:06→21:39)
[2022-11-05] MEDS: PIPERACILLIN-TAZOBACTAM 3.375 GM in SODIUM CHLORIDE 0.9% 100 ML IVPB SCH (09:47)
[2022-11-05] MEDS: DEXTROSE 5%-0.45% NACL 1,000 ML IV SCH (09:56)
[2022-11-05] MEDS: predniSONE 10 MG TAB PO SCH (10:44)
[2022-11-05] MEDS: ACETAMINOPHEN TAB 325 MG TAB PO SCH (10:44)
[2022-11-05] MEDS: risperiDONE 1 MG TAB PO SCH (10:44)
[2022-11-05] MEDS: FLUoxetine HCL 20 MG CAP PO SCH (10:47)
[2022-11-05] MEDS: LORATADINE 10 MG TAB PO SCH (10:47)
[2022-11-05] MEDS: SENNOSIDES 8.6 MG TAB PO SCH (10:47)
[2022-11-05] MEDS: ARIPiprazole 15 MG TAB PO SCH (10:48)
[2022-11-05] MEDS: PANTOPRAZOLE 40 MG TABLET PO SCH (10:48)
[2022-11-05] MEDS: FOLIC ACID 1 MG TAB PO SCH (10:48)
[2022-11-05] MEDS: DIVALPROEX 500 MG TABLET.DR PO SCH ×2 (10:48→15:57)
[2022-11-05] MEDS: HYDROcodone/APAP 15 ML SOLUTION PO SCH ×2 (10:48→15:56)
[2022-11-05] MEDS: ALPRAZolam 0.5 MG TAB PO SCH (10:48)
[2022-11-05] MEDS: CLOTRIMAZOLE/BETAMETH 1-0.05% CREAM 45 GM TUBE TOPICAL SCH (10:50)
[2022-11-05] MEDS: NYSTATIN 100,000UNIT/GM CREAM 30 GM TUBE TOPICAL SCH (10:50)
[2022-11-05] MEDS: DICLOFENAC SODIUM GEL 100 GM TUBE TOPICAL SCH ×2 (10:52→15:57)
[2022-11-05] MEDS: NYSTATIN 100,000 UNIT/GM POWD 15 GM TOPICAL SCH (10:54)
[2022-11-05] MEDS: TERBINAFINE 1% CREAM 15 GM TUBE TOPICAL SCH (10:55)
[2022-11-05 13:59] VITALS: BMI 36.6
[2022-11-05 15:51] VITALS: PULSE 72
--- NOTE | 2022-11-05 16:01 | P.DS ---
Providers Date of admission: 11/02/22 18:56 Expected date of discharge: 11/05/22 Attending physician: Fazal Marie Consults: 11/02/22 18:52 Consult Physician Routine Consulting Provider: Suzy Ga Consult Reason/Comments: Pneumonia Do you want consulting provider notified?: Yes Primary care physician: Alberto Mary [facility] Course: Chief Complaint: Fever This is a 56-year-old patient, follows with visiting physicians Dr. Mary. Chronic stable medical conditions include seizure disorder, brain injury, left foot drop, chronic UTIs, depression, hiatal hernia, cognitive emotional volatility, depression. Patient does attempt to speak but words not discernible. By the EMS report patient's AO 1 at baseline. Patient was diagnosed with UTI. Prescribed Levaquin continued to decline. Patient is more lethargic than normal and is refusing to eat or drink. Patient does sound a bit congested. Admitted with pneumonia, acute metabolic and some patchy/delirium. IV ceftriaxone. 11/03/2022: Saw patient in ER again today over flow. Patient is more awake. Able to answer simple questions. Feels hungry. Pured diet ordered. Spoke to the nurse. Less congestion in the chest. 11/04/2022: In bed. Recling. Awake. Answers simple questions. Oral intake fair. Afebrile. Discussed with ID. At least 1 more day of antibiotic. Negative procalcitonin. 11/05/2022: Patient able to hold a simple conversation. Underlying dysarthria. Eating with assistance. Discussed with ID Dr. Lowe. Antiemetics can be discontinued. No respiratory symptoms. Patient return to [facility] words, AFC Discussed with case packer. Discussion and discharge planning more than 35 minutes Social history: No smoking or alcohol. At [facility] [email or web address] Physical examination: VITAL SIGNS: 98.6, 68, 18, 93% room air GENERAL:, laying in bed , and comfortable EYES: Pupils equal. Conjunctiva normal. HEENT: External appearance of nose and ears normal, oral cavity grossly normal. NECK: JVD unable to assess masses not palpable. HEART: First and second heart sounds are normal; no edema. LUNGS: Respiratory rate normal; clear ABDOMEN: Soft, nontender, liver spleen not palpable, no masses palpable. PSYCH: Able to speak slowly.. And answer simple questions Neurological: Dysarthric MUSCULOSKELETAL:No Clubbing/cyanosis;muscles-grossly intact. Left foot drop INVESTIGATIONS, reviewed in the clinical context: November 04: White count 6.8 hemoglobin 11.1 platelets 197 potassium 4.1 creatinine 0.5 procalcitonin 0.06 Procalcitonin 0.06 White count 7.3 hemoglobin 12.5 platelets 219 sodium 140 potassium 4.9 BUN 33 creatinine 0.68 Influenza type A, E, RSV, COVID-19: Not detected EKG tracing personally reviewed by me-sinus rhythm. Rate 66, right bundle-br anch block Chest x-ray film personally reviewed by me-lower zone infiltrate Assessment and plan: -Pneumonia suspect gram-negative organism: Improved IV ceftriaxone, discontinued -History of chronic brain injury -Chronic dysarthria -Severe cognitive impairment from underlying prior brain injury -Obesity BMI 36.6 -Hyperlipidemia Lipitor -Seizure disorder Depakote -Essential hypertension Lisinopril -Acute metabolic encephalopathy from underlying infection. Improved Disposition: [facility]. [facility] Plan - Discharge Summary New Discharge Prescriptions: Continue diphenhydrAMINE [Benadryl] 25 mg PO QID PRN PRN Reason: RASH, EDEMA, ITCHING Clotrimazole/Betamethasone Dip [Lotrisone Cream] 1 applic TOPICAL BID@0800,1999 ARIPiprazole [Abilify] 15 mg PO DAILY@0800 ARIPiprazole [Abilify] 10 mg PO HS@1999 guaiFENesin [Mucinex] 600 mg PO BID PRN PRN Reason: Congestion Loperamide [Imodium] 2 - 4 mg PO QID PRN PRN Reason: Diarrhea Ibuprofen [Motrin] 600 mg PO BID PRN PRN Reason: Pain guaiFENesin-DM 100-10MG/5ML [Robitussin DM] 10 ml PO Q4H PRN PRN Reason: Cough Ergocalciferol (Vitamin D2) [Vitamin D2] 1,250 mcg PO Q30D Folic Acid 1 mg PO DAILY@0800 Magnesium Hydroxide [Milk of Magnesia] 2,400 mg PO Q72H PRN PRN Reason: Constipation Nystatin [Nystop] 1 applic TOPICAL BID Divalproex [Depakote] 500 mg PO TID Atorvastatin [Lipitor] 40 mg PO HS@1999 Sennosides [Senokot] 8.6 mg PO BID predniSONE 10 mg PO DAILY lisinopriL [Zestril] 5 mg PO DAILY PRN PRN Reason: HOLD FOR SBP<110 Albuterol Nebulized [Ventolin Nebulized] 2.5 mg INHALATION RT-QID Salicylic Acid [T-Davon] 1 applic TOPICAL DIRECTED PRN PRN Reason: DANDRUFF risperiDONE [RisperDAL] 3 mg PO DAILY@0800 Omeprazole 20 mg PO DAILY@0800 metHOTREXate sodium [Methotrexate] 15 mg PO WE Fish Oil/Dha/Epa [Fish Oil 1,200 mg Fish Oil] 1 cap PO BID Nystatin 100,000Unit/gm Cream [Mycostatin Cream] 1 applic TOPICAL BID FLUoxetine HCL 40 mg PO DAILY Diclofenac Sodium [Voltaren Arthritis Pain 1% Gel] 1 applic TOPICAL TID Acetaminophen [Tylenol Arthritis] 650 mg PO BID MDD 3GM OF ACETAMINOPHEN Terbinafine 1% Cream [LamISIL] 1 applic TOPICAL BID HYDROcodone/APAP [Ahmeek Elixir 7.5-325Mg/15Ml] 15 ml PO TID #150 ml MDD 3GM OF ACETAMINOPHEN ALPRAZolam [Xanax] 0.5 mg PO BID #6 tab Changed Acetaminophen Tab [Tylenol] 500 mg PO Q6H PRN #0 MDD 3GM OF ACETAMINOPHEN PRN Reason: Fever And/ Or Pain Discontinued Cetirizine HCl 10 mg PO DAILY Levofloxacin [Levaquin] 750 mg PO DAILY Fluconazole 200 mg PO DAILY Discharge Medication List ARIPiprazole [Abilify] 10 mg PO HS@199902/03/14 [History] ARIPiprazole [Abilify] 15 mg PO DAILY@0800 02/03/14 [History] Clotrimazole/Betamethasone Dip [Lotrisone Cream] 1 applic TOPICAL BID@08,199902/03/14 [History] diphenhydrAMINE [Benadryl] 25 mg PO QID PRN 02/03/14 [History] Ibuprofen [Motrin] 600 mg PO BID PRN 06/25/16 [History] Loperamide [Imodium] 2 - 4 mg PO QID PRN 06/25/16 [History] guaiFENesin [Mucinex] 600 mg PO BID PRN 06/25/16 [History] guaiFENesin-DM 100-10MG/5ML [Robitussin DM] 10 ml PO Q4H PRN 06/25/16 [History] Ergocalciferol (Vitamin D2) [Vitamin D2] 1,250 mcg PO Q30D 12/18/17 [History] Folic Acid 1 mg PO DAILY@0800 12/18/17 [History] Magnesium Hydroxide [Milk of Magnesia] 2,400 mg PO Q72H PRN 12/18/17 [History] Atorvastatin [Lipitor] 40 mg PO HS@199903/16/21 [History] Divalproex [Depakote] 500 mg PO TID 03/16/21 [History] Fish Oil/Dha/Epa [Fish Oil 1,200 mg Fish Oil] 1 cap PO BID 03/16/21 [History] Nystatin [Nystop] 1 applic TOPICAL BID 03/16/21 [History] Omeprazole 20 mg PO DAILY@0803/16/21 [History] Salicylic Acid [T-Davon] 1 applic TOPICAL DIRECTED PRN 03/16/21 [History] metHOTREXate sodium [Methotrexate] 15 mg PO WE 03/16/21 [History] risperiDONE [RisperDAL] 3 mg PO DAILY@0803/16/21 [History] Acetaminophen [Tylenol Arthritis] 650 mg PO BID MDD 3GM OF ACETAMINOPHEN 11/02/22 [History] Albuterol Nebulized [Ventolin Nebulized] 2.5 mg INHALATION RT-QID 11/02/22 [History] Diclofenac Sodium [Voltaren Arthritis Pain 1% Gel] 1 applic TOPICAL TID 11/02/22 [History] FLUoxetine HCL 40 mg PO DAILY 11/02/22 [History] Nystatin 100,000Unit/gm Cream [Mycostatin Cream] 1 applic TOPICAL BID 11/02/22 [History] Sennosides [Senokot] 8.6 mg PO BID 11/02/22 [History] Terbinafine 1% Cream [LamISIL] 1 applic TOPICAL BID 11/02/22 [History] lisinopriL [Zestril] 5 mg PO DAILY PRN 11/02/22 [History] predniSONE 10 mg PO DAILY 11/02/22 [History] ALPRAZolam [Xanax] 0.5 mg PO BID #6 tab 11/05/22 [Rx] Acetaminophen Tab [Tylenol] 500 mg PO Q6H PRN #0 MDD 3GM OF ACETAMINOPHEN 11/05/22 [Rx] HYDROcodone/APAP [Ahmeek Elixir 7.5-325Mg/15Ml] 15 ml PO TID #150 ml MDD 3GM OF ACETAMINOPHEN 11/05/22 [Rx] Follow up Appointment(s)/Referral(s): Alberto Mary MD [Primary Care Provider] - 11/09/22 (They will get a hold of you for a time they will be there.) Activity/Diet/Wound Care/Special Instructions: DC antibiotics as per Dr. Ga
--- NOTE | 2022-11-05 16:07 | P.PN ---
Subjective Progress Note Date: 11/04/22 Principal diagnosis: Pneumonia patient is a 56-year-old female with a past medical history significant for seizure disorder depression history of brain injury cognitive a nd emotional vitality and [facility] resident patient was sent to the ER after the patient was noticed to have a low-grade fever along with mental status changes, patient chest x-ray with bilateral basilar infiltrate that are concerning for possible pneumonia. On today's evaluation that is 11/04/2022, the patient is afebrile patient is currently breathing comfortably on a 5 L nasal cannula oxygen, patient denies having any chest pain or shortness breath occasional cough no abdominal pain or diarrhea Objective - Vital Signs Vital signs: Vital Signs Temp 98 F 11/04/22 11:45 Pulse 56 L 11/04/22 12:04 Resp 18 11/04/22 11:45 BP 126/78 11/04/22 11:45 Pulse Ox 96 11/04/22 11:45 FiO2 Intake & Output 11/03/22 11/04/22 11/04/22 18:59 06:59 18:59 Intake Total 1300 Output Total 1350 Balance -50 Weight 99.79 kg Intake: Intake, IV Titration 1300 Amount Dextrose 5%-0.45% NaCl 1, 1200 000 ml @ 100 mls/hr IV . Q10H MIKEL Rx#:[id number] Piperacillin-Tazobactam 3 100 .375 gm In Sodium Chloride 0.9% 100 ml @ 25 mls/hr IVPB Q8HR MIKEL Rx# :[id number] Output: Urine 1350 Other: Voiding Method External Catheter Diaper External Catheter # Voids 1 # Bowel Movements 0 - Exam GENERAL DESCRIPTION: Middle-age female lying in bed in no distress RESPIRATORY SYSTEM: Unlabored breathing , decreased breath sounds at bases HEART: S1 S2 regular rate and rhythm , ABDOMEN: Soft , no tenderness EXTREMITIES: No edema feet - Labs CBC & Chem 7: 11/04/22 06:24 11/04/22 06:24 Labs: Abnormal Lab Results - Last 24 Hours (Table) 11/04/22 11/04/22 Range/Units 06:24 06:24 RBC 3.67 L (4.10-5.20) X 10*6/uL Hgb 11.1 L (12.0-15.0) g/dL Hct 34.8 L (37.2-46.3) % MCHC 31.9 L (32.0-37.0) g/dL Immature Gran # 0.13 H (0.00-0.04) X 10*3/uL Creatinine 0.5 L (0.6-1.5) mg/dL BUN/Creatinine Ratio 25.20 H (12.00-20.00) Ratio Glucose 114 H (70-110) mg/dL Total Bilirubin 0.20 L (0.30-1.20) mg/dL C-Reactive Protein 1.60 H (0.00-0.80) mg/dL Total Protein 6.0 L (6.2-8.2) g/dL Albumin 3.4 L (3.8-4.9) g/dL Albumin/Globulin Ratio 1.31 L (1.60-3.17) g/dL Microbiology - Last 24 Hours (Table) 11/02/22 15:41 Blood Culture - Preliminary Blood No Growth after 24 hours 11/02/22 15:35 Blood Culture - Preliminary Blood No Growth after 24 hours Assessment and Plan (1) Abnormal chest x-ray Current Visit: Yes Status: Acute Code(s): R93.89 - ABNORMAL FINDINGS ON DX IMAGING OF OTH BODY STRUCTURES SNOMED Code(s): 644529126 (2) Pneumonia Current Visit: Yes Status: Acute Code(s): J18.9 - PNEUMONIA, UNSPECIFIED ORGANISM SNOMED Code(s): 202588831 Plan: 1patient presented to hospital with mental status changes decreased oral intake and this patient apparently was getting [facility] the [facility] no evidence of bilateral basilar infiltrate question of possible nosocomial pneumonia as the patient is [facility] resident and will need to cover for the resistant gram-negative 2 patient did have mildly elevated CRP however normal procalcitonin 3May continue Zosyn, and try diuretics possible fluid overload discussed with the admitting physician Time with Patient: Less than 30
--- NOTE | 2022-11-05 16:08 | P.PN ---
Subjective Progress Note Date: 11/05/22 Principal diagnosis: Pneumonia patient is a 56-year-old female with a past medical history significant for seizure disorder depression history of brain injury cognitive a nd emotional vitality and residential resident patient was sent to the ER after the patient was noticed to have a low-grade fever along with mental status changes, patient chest x-ray with bilateral basilar infiltrate that are concerning for possible pneumonia. On today's evaluation that is 11/05/2022, the patient remains to be afebrile patient is currently breathing comfortably on a 3 L nasal cannula oxygen, patient denies having any chest pain or shortness breath, the patient did have occasional dry cough no abdominal pain or diarrhea Objective - Vital Signs Vital signs: Vital Signs Temp 98.6 F 11/05/22 07:16 Pulse 68 11/05/22 11:43 Resp 18 11/05/22 07:16 BP 145/90 11/05/22 07:16 Pulse Ox 93 L 11/05/22 11:33 FiO2 Intake & Output 11/04/22 11/05/22 11/05/22 18:59 06:59 18:59 Intake Total 790 Output Total 400 Balance -400 790 Intake: Oral 790 Output: Urine 400 Other: Voiding Method Diaper Diaper Diaper External Catheter External Catheter # Voids 1 # Bowel Movements 1 - Exam GENERAL DESCRIPTION: Middle-age female lying in bed in no distress RESPIRATORY SYSTEM: Unlabored breathing , decreased breath sounds at bases HEART: S1 S2 regular rate and rhythm , ABDOMEN: Soft , no tenderness EXTREMITIES: No edema feet - Labs CBC & Chem 7: 11/04/22 06:24 11/04/22 06:24 Labs: Microbiology - Last 24 Hours (Table) 11/02/22 15:35 Blood Culture - Preliminary Blood No Growth after 48 hours 11/02/22 15:41 Blood Culture - Preliminary Blood No Growth after 48 hours Assessment and Plan (1) Abnormal chest x-ray Current Visit: Yes Status: Acute Code(s): R93.89 - ABNORMAL FINDINGS ON DX IMAGING OF OTH BODY STRUCTURES SNOMED Code(s): 371477975 Plan: 1patient presented to hospital with mental status changes decreased oral intake and this patient apparently was getting treatment for UTI with Levaquin at the residential no evidence of bilateral basilar infiltrate question of possible nosocomial pneumonia as the patient is residential resident and will need to cover for the resistant gram-negative 2 patient did have mildly elevated CRP however normal procalcitonin 3patient not behaving as pneumonia with no fever and elevated white count and did have normal pro-calcitonin antibiotics can be safely discontinued discussed with admitting team Time with Patient: Less than 30
== END 2022-11-05 21:47 | DRG 137 ==
LOC: EC 15:25 → 5NMEDONC 18:56
PROVIDERS: ADMIT Hospitalist; ATTEND Hospitalist
DX: J15.6 Pneumonia due to other Gram-negative bacteria (principal); E66.9 Obesity, unspecified; E78.5 Hyperlipidemia, unspecified; G93.41 Metabolic encephalopathy; G40.909 Epilepsy, unspecified, not intractable, without status epilepticus; I10 Essential (primary) hypertension; Z68.36 Body mass index [BMI] 36.0-36.9, adult; I45.10 Unspecified right bundle-branch block; M19.90 Unspecified osteoarthritis, unspecified site; R47.1 Dysarthria and anarthria; G31.84 Mild cognitive impairment of uncertain or unknown etiology; F05 Delirium due to known physiological condition; Z87.440 Personal history of urinary (tract) infections; K44.9 Diaphragmatic hernia without obstruction or gangrene; K76.82 Hepatic encephalopathy; M21.372 Foot drop, left foot; Z79.899 Other long term (current) drug therapy; Z87.820 Personal history of traumatic brain injury; Z88.2 Allergy status to sulfonamides
CPT/HCPCS: 36415; 71045; 71046; 80053; 81003; 83605; 84145; 85025; 85610; 85730; 86140; 87040; 87449; 87636; 93005; 94640; 94760; 96361; 96365; 96366; 96367; 96375; 99285